=== PATIENT | female | born 1955 | race Caucasian/White ===

== ENCOUNTER 2025-01-01 15:34 | Inpatient (IN) | payer MEDICARE, MEDICAID ==
[~2025-01-01] VITALS: Ht 152.4 cm; Wt 74.4 kg
[~2025-01-01 15:34] MED LIST: IBUP-1454 PO; INSU1INJ19 SC; PANC1CAP PO; TRAZ-227 PO
--- NOTE | 2025-01-01 15:49 | ED.PDOC ---
History of Present Illness HPI Comments 69-year-old female with PMHx Pancreatic Cancer, DM brought in by EMS presents with a chief complaint of generalized weakness and ALOC x 1 day. Per EMS, family noticed that beginning yesterday patient was becoming more lethargic and weak. Today patients family mention that patient is now altered and not responsive to verbal stimuli. Patient was given 300mL of NS by EMS and is now more alert, but is slower to respond. Patient was hypotensive at 60 systolic per EMS which is why they initiated the fluids. Patient is seen and treated for her cancer at [facility]. Patients blood sugar was 152 per EMS. Chief Complaint: General Weakness Time Seen by MD: 15:40 Reviewed Notes: Medications, Allergies Allergies: Coded Allergies: NO KNOWN ALLERGIES (Unverified , 01/01/25) Information Source: Emergency Med Personnel Mode of Arrival: EMS Severity: Moderate Timing: Hours Duration: Since onset Prehospital treatment: Accucheck, IVF (300mL NS) Past Medical History PAST MEDICAL HISTORY: Cancer, DM Surgical History: Denies all surgeries BUILDING SERVICES TECHNICIAN History: Denies all BUILDING SERVICES TECHNICIAN Hx Family History Family History: Reviewed,noncontributory to illness Social History Smoker: Non-Smoker Alcohol: Denies ETOH Use Drugs: Denies Drug Use Lives In: Home Constitutional: reports: weakness; denies: chills, diaphoresis, fatigue, fever, malaise, sweats, others EENTM: denies: blurred vision, double vision, ear bleeding, ear discharge, ear drainage, ear pain, ear ringing, eye pain, eye redness, hearing loss, mouth pain, mouth swelling, nasal discharge, nose bleeding, nose congestion, nose pain, photophobia, tearing, throat pain, throat swelling, voice changes, others Respiratory: denies: cough, hemoptysis, orthopnea, SOB at rest, shortness of breath, SOB with excertion, stridor, wheezing, others Cardiovascular: denies: chest pain, dizzy spells, diaphoresis, Dyspnea on exertion, edema, irregular heart beat, left arm pain, lightheadedness, palpitations, PND, syncope, others Gastrointestinal: denies: abdomen distended, abdominal pain, blood streaked bowels, constipated, diarrhea, dysphagia, difficulty swallowing, hematemesis, melena, nausea, poor appetite, poor fluid intake, rectal bleeding, rectal pain, vomiting, others Genitourinary: denies: abnormal vagina bleeding, burning, dyspareunia, dysuria, flank pain, frequency, hematuria, incontinence, pain, , vagina discharge, urgency, others Neurological: denies: dizziness, fainting, headache, left sided numbness, left sided weakness, numbness, paresthesia, pre-existing deficit, right sided numbness, right sided weakness, seizure, speech problems, tingling, tremors, weakness, others Musculoskeletal: denies: back pain, gout, joint pain, joint swelling, muscle pain, muscle stiffness, neck pain, others Integumetry: denies: bruises, change in color, change in hair/nails, dryness, laceration, lesions, lumps, rash, wounds, others Allergic/Immunocompromised: denies: Difficulty Healing, Frequent Infections, Hives, Itching, others Hematologic/Lymphatic: denies: anemia, blood clots, easy bleeding, easy bruising, swollen glands, others Endocrine: denies: excessive hunger, excessive sweating, excessive thirst, excessive urination, flushing, intolerance to cold, intolerance to heat, unexplained weight gain, unexplained weight loss, others Psychiatric: denies: anxiety, bipolar disorder, depression, hopeless, panic disorder, schizophrenia, sleepless, suicidal, others All Other Systems: Reviewed and Negative Physical Exam General Appearance: No Apparent Distress, Normal, Other (PLESANTLY CONFUSED) HEENT: Normal ENT Inspection, Pharynx Normal, TMs Normal Neck: Full Range of Motion, Non-Tender, Normal, Normal Inspection Respiratory: Chest Non-Tender, Lungs Clear, No Accessory Muscle Use, No Respiratory Distress, Normal Breath Sounds Cardiovascular: No Edema, No JVD, No Murmur, No Gallop, Normal Peripheral Pulses, Regular Rate/Rhythm Breast Exam: Deferred Gastrointestinal: No Organomegaly, Non Tender, No Pulsatile Mass, Normal Bowel Sounds, Soft Genitalia: Deferred Pelvic: Deferred Rectal: Deferred Extremities: No calf tenderness, Normal capillary refill, Normal inspection, Normal range of motion, Non-tender, No pedal edema Neurologic: Alert, enamel cracker II-XII nml as Tested, No Motor Deficits, Normal Affect, Normal Mood, No Sensory Deficits Cerebellar Function: Normal Reflexes: Normal Skin: Dry, Normal Color, Warm Lymphatic: No Adenopathy Was a procedure done? Was a procedure done?: No Differential Dx Considerations may include: Electrolyte abnormality, infectious etiology, chemotherapy reaction, ACS, worsening malignancy X-Ray, Labs, Meds, VS Vital Signs Date Time Temp Pulse Resp B/P (MAP) Pulse Ox O2 Delivery O2 Flow Rate FiO2 01/01/25 16:15 90 18 99 Nasal Cannula* 2 28 01/01/25 15:57 97.9 90 18 81/56 (64) 98 97.9 Lab Test 01/01/25 16:51 01/01/25 16:23 Range/Units White Blood Count 5.2 4.4-10.8 10^3/uL Red Blood Count 2.25 L 4.0-5.20 10^6/uL Hemoglobin 7.3 L 12.2-16.2 g/dL Hematocrit 21.8 L 36.0-46.0 % Mean Corpuscular Volume 97.1 80.0-100.0 fL Mean Corpuscular Hemoglobin 32.7 H 28.0-32.0 pg Mean Corpuscular Hemoglobin Concent 33.6 32.0-36.0 g/dL Red Cell Distribution Width 16.9 H 11.8-14.3 % Platelet Count 62 L 140-450 10^3/uL Mean Platelet Volume 10.2 6.9-10.8 fL Neutrophils (%) (Auto) 37.0-80.0 % Lymphocytes (%) (Auto) 10.0-50.0 % Monocytes (%) (Auto) 0.0-12.0 % Basophils (%) (Auto) 0.0-2.0 % Neutrophils # (Auto) 1.6-8.6 10 ^3/uL Lymphocytes # (Auto) 0.4-5.4 10 ^3/uL Monocytes # (Auto) 0-1.3 10 ^3/uL Differential Total Cells Counted Pending Neutrophils % (Manual) Pending Band Neutrophils % (Manual) Pending Lymphocytes % (Manual) Pending Monocytes % (Manual) Pending Eosinophils % (Manual) Pending Basophils % (Manual) Pending Metamyelocytes % (manual) Pending Myelocytes % (Manual) Pending Promyelocytes % (Manual) Pending Blast Cells % (Manual) Pending Reactive Lymphocytes Pending Platelet Estimate Pending Sodium Level 142 136-145 mmol/L Potassium Level 3.0 L 3.5-5.1 mmol/L Chloride Level 109 H 98-107 mmol/L Carbon Dioxide Level 25 20-31 mmol/L Anion Gap 8 5-15 Blood Urea Nitrogen 24 H 9-23 mg/dL Creatinine 1.29 H 0.550-1.02 mg/dL Glomerular Filtration Rate Calc 45 >90 mL/min BUN/Creatinine Ratio 18.6 10.0-20.0 Serum Glucose 141 H 74-106 mg/dL Lactic Acid Level 2.3 *H 0.4-2.0 mmol/L Calcium Level 7.7 L 8.7-10.4 mg/dL Total Bilirubin 0.6 0.2-1.0 mg/dL Aspartate Amino Transferase (AST) 265 H 13-40 U/L Alanine Aminotransferase (ALT) 158 H 7-40 U/L Alkaline Phosphatase 248 H 46-116 U/L Ammonia < 10 L 11-32 umol/L Troponin I High Sensitivity 9201 *H </=34 ng/L B-Type Natriuretic Peptide 166.06 0-100 pg/mL Total Protein 3.7 L 5.7-8.2 g/dL Albumin 1.9 L 3.2-4.8 g/dL Lipase 12 12-53 U/L POC Glucose 139 H 70-106 mg/dl Time of 1ST Reevaluation: 16:10 Reevaluation 1ST: Unchanged Patient Education/Counseling: Diagnosis, Treatment, Prognosis Family Education/Counseling: Diagnosis, Treatment, Prognosis Departure 1 Departure Time of Disposition: 17:33 (Patient with hypotension refractory to IV fluid bolus. Started pressors. Reportedly the patient's electrolytes and we will admit to the ICU.) Impression: Primary Impression: Generalized weakness Additional Impressions: Metabolic encephalopathy Hypokalemia Hypocalcemia Hypotension Qualified Codes: I95.9 - Hypotension, unspecified Disposition: 09 ADMITTED INPATIENT Admit to: ICU Condition: Critical Critical Care Note Critical Care Time?: Yes Critical care comment: Acute hypotension Authorized and Performed by: Pam Garcia MD Total critical care time: Approximately 68 minutes Due to a high probability of clinically significant, life threatening deterioration, the patient required my highest level of preparedness to intervene emergently and I personally spent this critical care time directly and personally managing the patient. This critical care time included obtaining a history; examining the patient; pulse oximetry; ordering and review of studies; arranging urgent treatment with development of a management plan; evaluation of patient's response to treatment; frequent reassessment; and, discussions with other providers. This critical care time was performed to assess and manage the high probability of imminent, life-threatening deterioration that could result in multi-organ failure. It was exclusive of separately billable procedures and treating other patients and teaching time. Please see my other sections and the rest of the note for further information on patient assessment and treatment. I personally scribed for PAM GARCIA MD ([email or web address]) on 01/01/25 at 15:49. Electronically submitted by Kale Arzola ([email or web address]). PAM GARCIA MD Jan 01, 2025 15:49
[2025-01-01] MEDS: SODIUM CHLORIDE 0.9% 1,000 ML IV ONE (16:00)
[2025-01-01 16:15] VITALS: PULSE 90; RESP 18; O2SAT 99
[2025-01-01 17:04] LABS: Platelet Count (auto) 62 10^3/uL (140-450); White Blood Cell 5.2 10^3/uL (4.4-10.8)
[2025-01-01 17:06] LABS: Hematocrit 21.8 % (36.0-46.0); Hemoglobin 7.3 g/dL (12.2-16.2); Mean Corpuscular Hemoglobin 32.7 pg (28.0-32.0); Mean Corpuscular Hgb Conc. 33.6 g/dL (32.0-36.0); Mean Corpuscular Volume 97.1 fL (80.0-100.0); Red Blood Cells 2.25 10^6/uL (4.0-5.20); Red Cell Distribution Width 16.9 % (11.8-14.3)
[2025-01-01] MEDS: NOREPINEPHRINE 8 MG/250ML KIT 250 ML IV ONE (17:07)
[2025-01-01] MEDS: NOREPINEPHRINE 8 MG/250ML KIT 250 ML IV SCH (17:15)
[2025-01-01 17:18] LABS: Basophils % (manual) 0 (0.0-2.0); Blast Cells 0; Eosinophils % (manual) 0 (0-7); Metamyelocytes % 0; Myelocytes % 0; Promyelocytes % 0; Reactive Lymphocytes 0
[2025-01-01 17:21] LABS: Anion Gap 8 (5-15); BUN/Creatinine Ratio 18.6 (10.0-20.0); Carbon Dioxide 25 mmol/L (20-31); Lipase 12 U/L (12-53); Sodium 142 mmol/L (136-145)
[2025-01-01 17:22] LABS: Bilirubin, Total 0.6 mg/dL (0.2-1.0)
[2025-01-01 17:28] LABS: Alanine Aminotransferase 158 U/L (7-40); Albumin 1.9 g/dL (3.2-4.8); Alkaline Phosphatase 248 U/L (46-116); Aspartate Aminotransferase 265 U/L (13-40); Blood Urea Nitrogen 24 mg/dL (9-23); Calcium 7.7 mg/dL (8.7-10.4); Chloride 109 mmol/L (98-107); Glucose 141 mg/dL (74-106); Total Protein 3.7 g/dL (5.7-8.2)
[2025-01-01 17:30] LABS: Lactic Acid w/Reflex 2.3 mmol/L (0.4-2.0)
[2025-01-01 18:21] LABS: Band Neutrophils % (manual) 8; Lymphocytes % (manual) 1 (10.0-50.0); Monocytes % (manual) 3 (0-12)
[2025-01-01 18:22] LABS: Large Platelets FEW; Platelet Estimate Decrea
--- NOTE | 2025-01-01 18:43 | DVH ---
EXAM: CT HEAD WITHOUT CONTRAST INDICATION: ams TECHNIQUE: CT of the head without intravenous contrast. Radiation Dose Information: CT Dose: CTDI volume is 51.44 mGy. Dose-length product is 911.09 mGy*cm The dose indicators for CT are the volume Computed Tomography (CT) Dose Index (CTDIvol) and the Dose Length Product (DLP), and are measured in units of mGy and mGy-cm, respectively. These indicators are not patient dose, but values generated from the CT scanner acquisition factors. The report includes radiation exposure data for exposures received during this examination. COMPARISON: None FINDINGS: There is no evidence of acute intracranial hemorrhage, extra-axial collection, mass effect, midline s hift, herniation or hydrocephalus. The ventricles, sulci and cisterns are age appropriate. The morales-white differentiation is intact. Patchy periventricular and subcortical white matter hypoattenuation is nonspecific but may be related to small vessel ischemic disease. The visualized paranasal sinuses and mastoid air cells are clear. The surrounding soft tissues and osseous structures are unremarkable. IMPRESSION: 1. No acute intracranial hemorrhage 2. No CT findings displaced skull fracture 3. CT findings of territorial ischemia.
--- NOTE | 2025-01-01 18:45 | DVH ---
CHEST RADIOGRAPH Indication: ams Technique: Single frontal view of the chest was obtained Comparison: None FINDINGS: Lines and Tubes: Right IJ approach central venous catheter terminating over the superior cavoatrial j unction. Lungs: No focal consolidation. Diffuse interstitial prominence. Pleura: No effusion. No pneumothorax. Cardiomediastinal contours: Unremarkable Bones: No acute osseous abnormality. IMPRESSION: Diffuse interstitial prominence which may be from pulmonary edema /atypical pneumonia.
[2025-01-01] MEDS: AMIODARONE BOLUS KIT 100 ML IV ONE (19:02)
[2025-01-01] MEDS: CALCIUM GLUC 1,000mg/50ml-NS 50 ML IV SCH (19:31)
[2025-01-01 19:38] LABS: INR 1.49 (0.9-1.15); Partial Thromboplastin Time 46.1 SEC (24.5-34.5); Prothrombin Time 15.2 sec (9.3-11.8)
[2025-01-01] MEDS: LIDOCAINE 1% (LOCAL ANESTH.) PF 5ml SDV ID ONE (20:20)
[2025-01-01] MEDS: METOPROLOL TARTRATE 1MG/1ML-5ML VIAL IV ONE (20:55)
[2025-01-01 22:16] LABS: Urine Bacteria MANY /hpf (None Seen); Urine Blood Negative /uL (Negative); Urine Clarity Turbid (Clear); Urine Color Yellow (Yellow); Urine Mucus FEW (None Seen); Urine Protein, UAD 1+ (Negative); Urine Squamous Epithelial Cell FEW /hpf (<5); Urine Urobilinogen 2 mg/dL (Negative); Urine WBC 26 /HPF (0-5); Urine pH 5.5 (5.0-9.0)
[2025-01-01] MEDS: SODIUM CHLOR 0.9% PF (SALINE LOCK) 10ML VIAL/SYR IV SCH (22:24)
[2025-01-01] MEDS: POTASSIUM CHL 20MEQ/100ML 100 ML IV SCH ×2 (22:48→23:55)
[2025-01-02] VITALS (72 sets, daily range): BP systolic 76–110; BP diastolic 51–74; PULSE 71–137; RESP 13–25; TEMP 97.3–99.2; O2SAT 86–100
--- NOTE | 2025-01-02 00:30 | PRN ---
Misceleneous Note Note Note Patient initially treated by Dr. Lindsey. Pending hospitalist admission. Received a request from patient's nurse that patient and her daughter requesting to update advanced directives to do not resuscitate - (no compressions), do not intubate. Patient's troponins noted to be trending upwards. EKG showed SVT at a rate of 160s. Dose of 2.5 mg metoprolol was administered. Case discussed with Dr. Brown, cardiology. Given patient's hemoglobin of 7.2 platelets of 62, history of cancer and DNR DNI status. He recommends against heparin or cardiac catheterization at this time. He recommends aspirin, beta- hilario and statin. SHELLY ZAVALA MD Jan 02, 2025 00:30
[2025-01-02] MEDS ORDERED: ACETAMINOPHEN 325 MG TAB PO PRN (01:00)
[2025-01-02] MEDS ORDERED: MORPHINE SULFATE INJ 2 MG/ml SYRG IV PRN (01:00)
[2025-01-02] MEDS ORDERED: NITROGLYCERIN 0.4 MG SL TAB SL PRN (01:00)
[2025-01-02] MEDS ORDERED: ONDANSETRON HCL 4 MG/2 ML VIAL IV PRN (01:00)
--- NOTE | 2025-01-02 01:09 | DVHHP2 ---
History of Present Illness Reason for Visit: Generalized weakness History of Present Illness 69-year-old female presented for evaluation of generalized weakness. Patient with pancreatic cancer currently being treated at [facility] with chemotherapy every Thursday. Patient presents after being noted progressively weaker and lethargic by family. On route patient's blood pressure was in the 70s. Patient is currently alert and oriented x3. Denies headache or blurred vision. Reports mild dizziness. Denies chest pain or shortness for breath. No abdominal pain, nausea or vomiting. Denies fever or chills. No other acute complaints reported. Past Medical History Diabetes mellitus, cancer Past Surgical History None Family History Noncontributory Smoke: No ALCOHOL: none Drugs: None Review of Systems Review of Systems Review of systems are currently negative otherwise addressed in HPI. Allergies: Coded Allergies: NO KNOWN ALLERGIES (Unverified , 01/01/25) Medications Current Medications Medications Dose Ordered Sig/Maxi Route Start Time Stop Time Status Last Admin Dose Admin Norepinephrine Bitartrate 250 ml @ 3.75 mls/hr Q24H IV 01/01/25 17:15 01/01/25 23:35 37.5 MLS/HR Sodium Chloride 10 ml QSHIFT@10,22 IV 01/01/25 22:00 01/01/25 22:24 10 ML Potassium Chloride 100 ml @ 50 mls/hr Q2H IV 01/01/25 23:45 01/02/25 01:44 01/01/25 23:55 50 MLS/HR Aspirin 162 mg DAILY PO 01/02/25 10:00 UNV Atorvastatin Calcium 20 mg HS PO 01/02/25 22:00 UNV Ceftriaxone Sodium 50 ml @ 100 mls/hr DAILY@09 IV 01/02/25 09:00 UNV Azithromycin 250 ml @ 125 mls/hr DAILY IV 01/02/25 10:00 UNV Diagnostic Test (Pha) 1 strip Q6HR 01/02/25 06:00 UNV Insulin Human Regular Q6HR SC 01/02/25 06:00 UNV Dextrose 50 ml UD PRN IV 01/02/25 01:00 UNV Ondansetron HCl 4 mg Q4HP PRN IV 01/02/25 01:00 UNV Acetaminophen 650 mg Q6HP PRN PO 01/02/25 01:00 UNV Nitroglycerin 0.4 mg Q5MINP PRN SL 01/02/25 01:00 UNV Morphine Sulfate 2 mg Q30M PRN IV 01/02/25 01:00 UNV Exam Vital Signs Vital Signs Date Time Temp Pulse Resp B/P (MAP) Pulse Ox O2 Delivery O2 Flow Rate FiO2 01/02/25 00:45 58 19 96/62 (73) 98 01/01/25 19:30 99.2 99.2 01/01/25 19:22 Nasal Cannula* 2 28 Exam Gen: 69-year-old female in mild distress Skin: Warm, dry, normal color and texture, left forearm skin tear HEENT: Normocephalic atraumatic, mucous membranes moist and pink. Neck: Cervical and supraclavicular nodes normal without enlargement, trachea is midline, thyroid gland is normal without masses. Pulmonary: Clear to auscultation and percussion bilaterally. Cardiac: Irregular rhythm Abdomen: Soft, nontender, nondistended, bowel sounds present all 4 quadrants, no guarding, no rigidity, no organomegaly. Extremities: No cyanosis, clubbing, no edema Neuro: Cranial nerves II through XII grossly intact, normal affect and speech, no focal motor deficits. Labs/Xrays ORDERING PHYSICIAN: PAM HOANG MD PROCEDURE(s): CXRP - CHEST PORTABLE REASON: [facility] ORDER NUMBER(s): [id number], ACCESSION NUMBER(s): [id number] CHEST RADIOGRAPH Indication: ams Technique: Single frontal view of the chest was obtained Comparison: None FINDINGS: Lines and Tubes: Right IJ approach central venous catheter terminating over the superior cavoatrial junction. Lungs: No focal consolidation. Diffuse interstitial prominence. Pleura: No effusion. No pneumothorax. Cardiomediastinal contours: Unremarkable Bones: No acute osseous abnormality. IMPRESSION: Diffuse interstitial prominence which may be from pulmonary edema /atypical pneumonia. RING PHYSICIAN: PAM HOANG MD PROCEDURE(s): HWOCT - HEAD WITHOUT CONTRAST REASON: [facility] ORDER NUMBER(s): [id number], ACCESSION NUMBER(s): [id number] EXAM: CT HEAD WITHOUT CONTRAST INDICATION: ams TECHNIQUE: CT of the head without intravenous contrast. Radiation Dose Information: CT Dose: CTDI volume is 51.44 mGy. Dose-length product is 911.09 mGy*cm The dose indicators for CT are the volume Computed Tomography (CT) Dose Index (CTDIvol) and the Dose Length Product (DLP), and are measured in units of mGy and mGy-cm, respectively. These indicators are not patient dose, but values generated from the CT scanner acquisition factors. The report includes radiation exposure data for exposures received during this examination. COMPARISON: None FINDINGS: There is no evidence of acute intracranial hemorrhage, extra-axial collection, mass effect, midline shift, herniation or hydrocephalus. The ventricles, sulci and cisterns are age appropriate. The morales-white differentiation is intact. Patchy periventricular and subcortical white matter hypoattenuation is nonspecific but may be related to small vessel ischemic disease. The visualized paranasal sinuses and mastoid air cells are clear. The surrounding soft tissues and osseous structures are unremarkable. IMPRESSION: 1. No acute intracranial hemorrhage 2. No CT findings displaced skull fracture 3. CT findings of territorial ischemia. ATED BY: NYLA HOWARD Jr. DO Labs Test 01/01/25 22:04 01/01/25 19:25 01/01/25 16:51 01/01/25 16:23 Range/Units Urine Color Yellow Yellow Urine Clarity Turbid H Clear Urine pH 5.5 5.0-9.0 Urine Specific [place] 1.020 1.001-1.035 Urine Protein 1+ H Negative Urine Ketones Trace Negative Urine Blood Negative Negative /uL Urine Nitrite Negative Negative Urine Bilirubin Negative Negative Urine Urobilinogen 2 H Negative mg/dL Urine Leukocyte Esterase 1+ Negative /uL Urine RBC 10 0 - 4 /hpf Urine Microscopic WBC 26 H 0-5 /HPF Urine Squamous Epithelial Cells Few <5 /hpf Urine Bacteria Many H None Seen /hpf Urine Mucus Few None Seen Urine Glucose Normal Normal mg/dL Lactic Acid Level 3.2 *H 0.4-2.0 mmol/L Troponin I High Sensitivity 51857 *H </=34 ng/L White Blood Count 5.2 4.4-10.8 10^3/uL Red Blood Count 2.25 L 4.0-5.20 10^6/uL Hemoglobin 7.3 L 12.2-16.2 g/dL Hematocrit 21.8 L 36.0-46.0 % Mean Corpuscular Volume 97.1 80.0-100.0 fL Mean Corpuscular Hemoglobin 32.7 H 28.0-32.0 pg Mean Corpuscular Hemoglobin Concent 33.6 32.0-36.0 g/dL Red Cell Distribution Width 16.9 H 11.8-14.3 % Platelet Count 62 L 140-450 10^3/uL Mean Platelet Volume 10.2 6.9-10.8 fL Neutrophils (%) (Auto) 37.0-80.0 % Lymphocytes (%) (Auto) 10.0-50.0 % Monocytes (%) (Auto) 0.0-12.0 % Basophils (%) (Auto) 0.0-2.0 % Neutrophils # (Auto) 1.6-8.6 10 ^3/uL Lymphocytes # (Auto) 0.4-5.4 10 ^3/uL Monocytes # (Auto) 0-1.3 10 ^3/uL Differential Total Cells Counted 100.0 100 Neutrophils % (Manual) 88 H 37.0-80.0 Band Neutrophils % (Manual) 8 Lymphocytes % (Manual) 1 L 10.0-50.0 Monocytes % (Manual) 3 0-12 Eosinophils % (Manual) 0 0-7 Basophils % (Manual) 0 0.0-2.0 Metamyelocytes % (manual) 0 Myelocytes % (Manual) 0 Promyelocytes % (Manual) 0 Blast Cells % (Manual) 0 Reactive Lymphocytes 0 Platelet Estimate Decrea Large Platelets Few Prothrombin Time 15.2 H 9.3-11.8 sec Prothrombin Time INR 1.49 H 0.9-1.15 Activated Partial Thromboplast Time 46.1 H 24.5-34.5 SEC Sodium Level 142 136-145 mmol/L Potassium Level 3.0 L 3.5-5.1 mmol/L Chloride Level 109 H 98-107 mmol/L Carbon Dioxide Level 25 20-31 mmol/L Anion Gap 8 5-15 Blood Urea Nitrogen 24 H 9-23 mg/dL Creatinine 1.29 H 0.550-1.02 mg/dL Glomerular Filtration Rate Calc 45 >90 mL/min BUN/Creatinine Ratio 18.6 10.0-20.0 Serum Glucose 141 H 74-106 mg/dL Calcium Level 7.7 L 8.7-10.4 mg/dL Total Bilirubin 0.6 0.2-1.0 mg/dL Aspartate Amino Transferase (AST) 265 H 13-40 U/L Alanine Aminotransferase (ALT) 158 H 7-40 U/L Alkaline Phosphatase 248 H 46-116 U/L Ammonia < 10 L 11-32 umol/L B-Type Natriuretic Peptide 166.06 0-100 pg/mL Total Protein 3.7 L 5.7-8.2 g/dL Albumin 1.9 L 3.2-4.8 g/dL Lipase 12 12-53 U/L POC Glucose 139 H 70-106 mg/dl Assessment/Plan Assessment/Plan Assessment NSTEMI Possible early sepsis Possible community-acquired pneumonia Hypokalemia Acute kidney injury Transaminitis Severe protein malnutrition Diabetes mellitus Pancreatic cancer status post chemotherapy Urinary tract infection Thrombocytopenia Plan Admit the patient to ICU to the hospitalist Continue vasoactive support for blood pressure Follow cardiology recommendations by Dr. Brown Continue treatment per orders Total critical care time excluding procedures performed is 50 minutes. Plan discussed with: Patient My Orders Orders - JAZLYN DE LA O AGACNP Procedure Category Date Status Time Blood Culture [id number] 01/02/25 Logged 00:50 Aspirin Tablet PHA 01/02/25 Logged 10:00 Atorvastatin (Lipitor) PHA 01/02/25 Logged 01:00 Atorvastatin (Lipitor) PHA 01/02/25 Logged 22:00 Ceftriaxone 1gm/50ml PHA 01/02/25 Logged D5w (Rocephin) 09:00 Ceftriaxone 1gm/50ml PHA 01/02/25 Logged D5w (Rocephin) 01:00 Azithromycin 500mg/ PHA 01/02/25 Logged 250ml (Zithromax 50 10:00 Azithromycin 500mg/ PHA 01/02/25 Transmitted 250ml (Zithromax 50 01:00 Stool Occult Blood LAB 01/02/25 Logged 00:50 * Cardiology Consult CONS 01/02/25 Transmitted 00:50 Echo 2d Mode Cardiac US 01/02/25 Transmitted DOP 00:50 Complete Blood Count LAB 01/02/25 Logged 00:50 Comprehensive LAB 01/02/25 Logged Metabolic Panel 00:50 Albuterol Medneb PHA 01/02/25 Transmitted (Ventolin Medneb) 01:00 Glucose Blood PHA 01/02/25 Logged (Accu-Chek Comfort 06:00 Insulin R (Human) PHA 01/02/25 Logged (Insulin R) 06:00 Dextrose 50% Syringe PHA 01/02/25 Logged 01:00 Admit ADMIT 01/02/25 Transmitted 00:50 Ondansetron Hcl PHA 01/02/25 Logged (Zofran) 01:00 Cardiac DIET 01/02/25 Transmitted Diet-2gna,Lofat,Lochol Breakfast Condition: Critical THAO 01/02/25 In Process 00:50 Acetaminophen Tablet PHA 01/02/25 Logged (Tylenol Tablet) 01:00 Bedrest With Bathroom THAO 01/02/25 In Process Privileg 00:50 Nitroglycerin PHA 01/02/25 Logged Sublingual (Ntrostat 01:00 Morphine Sulfate PHA 01/02/25 Logged Injection 01:00 Stat Ekg For Chest [facility] 01/02/25 In Process Pain 00:50 Notify Md Of Changes [facility] 01/02/25 In Process From Base 00:50 Inbound Sales Manager For [facility] 01/02/25 In Process 24 Hours 00:50 Emergency Dysrhythmia [facility] 01/02/25 In Process Protocol 00:50 Rhythm Strips Once [facility] 01/02/25 In Process Every Shift 00:50 Oxygen By Nasal RT 01/02/25 Transmitted Cannula 00:50 Date of Service: Jan 02, 2025 Billing Provider: JAZLYN DE LA O Common Visit Codes: 45556-[id number] CARE 30-74 MIN JAZLYN DE LA O Jan 02, 2025 01:09
[2025-01-02] MEDS: ATORVASTATIN 20 MG TAB PO ONE (01:13)
[2025-01-02] MEDS: cefTRIAXone 1GM/50ML D5W 50 ML IV ONE (01:19)
[2025-01-02] MEDS: AZITHROMYCIN 500MG/ 250ML 250 ML IV ONE (01:20)
[2025-01-02 01:28] LABS: Basophils # (auto) 0 10 ^3/uL (0-0.2); Basophils % (auto) 0.1 % (0.0-2.0); Eosinophils # (auto) 0 10 ^3/uL (0-0.8); Hematocrit 29.5 % (36.0-46.0); Hemoglobin 9.9 g/dL (12.2-16.2); Lymphocytes # (auto) 0.3 10 ^3/uL (0.4-5.4); Lymphocytes % (auto) 1.9 % (10.0-50.0); Mean Corpuscular Hemoglobin 32.4 pg (28.0-32.0); Mean Corpuscular Hgb Conc. 33.4 g/dL (32.0-36.0); Monocytes # (auto) 0.7 10 ^3/uL (0-1.3); Monocytes % (auto) 4.5 % (0.0-12.0); Neutrophils # (auto) 14.7 10 ^3/uL (1.6-8.6); Neutrophils % (auto) 93.5 % (37.0-80.0); Nucleated Red Blood Cells % 0.1 %; Platelet Count (auto) 103 10^3/uL (140-450); Red Blood Cells 3.04 10^6/uL (4.0-5.20); Red Cell Distribution Width 17.4 % (11.8-14.3); White Blood Cell 15.7 10^3/uL (4.4-10.8)
[2025-01-02 01:47] LABS: Anion Gap 9 (5-15); BUN/Creatinine Ratio 18.1 (10.0-20.0); Bilirubin, Total 1.1 mg/dL (0.2-1.0); Calcium 8.9 mg/dL (8.7-10.4); Carbon Dioxide 24 mmol/L (20-31); Potassium 4.2 mmol/L (3.5-5.1); Sodium 141 mmol/L (136-145)
[2025-01-02 02:07] LABS: Alanine Aminotransferase 193 U/L (7-40); Albumin 2.4 g/dL (3.2-4.8); Alkaline Phosphatase 345 U/L (46-116); Aspartate Aminotransferase 250 U/L (13-40); Blood Urea Nitrogen 25 mg/dL (9-23); Chloride 108 mmol/L (98-107); Glucose 131 mg/dL (74-106); Total Protein 4.9 g/dL (5.7-8.2)
[2025-01-02] MEDS: ACCU-CHEK COMFORT CURVE STRIP VI SCH (05:59)
[2025-01-02] MEDS: InsuLIN REG 1unit/0.01ml Soln (100units/ml) SC SCH (06:11)
--- NOTE | 2025-01-02 07:10 | ECG ---
[facility] Test Date: 2025-01-01 Test Time: 21:31:23 Pat Name: ACACIA SMILEY Department: ER Room: [address] [place] [address] Gender: F English And Reading Instructor: : 1955 Requested By: PAM HOANG Order Number: [id number] Reading MD: Tarik Warren Measurements Intervals [place] Rate: 64 P: 46 AK: 144 QRS: -20 QRSD: 105 T: 49 QT: 539 QTc: 557 Interpretive Statements Uncertain rhythm: review Low voltage, extremity and precordial leads Prolonged QT interval Electronically Signed On 01-05-2025 10:36:16 PST by Tarik Warren Please click the below link to view image of tracing.
[2025-01-02] MEDS: LACTATED RINGER'S 1,000 ML IV ONE (09:48)
[2025-01-02] MEDS: ASPirin 81 mg TAB PO SCH (09:51)
[2025-01-02] MEDS: PHENYLEPHRINE IV 250 ML IV SCH (09:53)
--- NOTE | 2025-01-02 11:13 | DVHINCON2 ---
Date of service: Jan 01, 2025 Referring Physician Manan Reason for Consultation NSTEMI History of Present Illness This is a 69 year old female with a PMH of Pancreatic Cancer and DM who was brought in by EMS with complaint of generalized weakness and ALOC x 1 day. Per EMS, family noticed that beginning yesterday patient was becoming more lethargic and weak. Today patients family mention that patient is now altered and not responsive to verbal stimuli. Patient was given 300mL of NS by EMS and is now more alert, but is slow to respond. Patient was hypotensive at 60 systolic per EMS which is why they initiated the fluids. Patient is being treated for her cancer at [facility] with chemotherapy every Thursday. Chest x-ray shows diffuse interstitial prominence which may be from pulmonary edema /atypical pneumonia. CT head shows no acute intracranial hemorrhage. No CT findings displaced skull fracture. CT findings of territorial ischemia. HGB 7.3, HCT 21.8, PT 15.2, INR 1.49, APTT 46.1, K 3.0, BUN 24, Lead Java Programmer 1.29, LA 2.3, AST 265, ALT 158, Alk phos 248, BNP 166. Troponin 9201 > 06715 > 68505. Patient was admitted to the hospital. I am asked to consult on this patient. Past Medical History DM, cancer Past Surgical History Denies all surgeries Allergies: Coded Allergies: NO KNOWN ALLERGIES (Unverified , 01/01/25) Current Medications Current Medications Medications (Trade) Dose Ordered Sig/Maxi Route PRN Reason Start Time Stop Time Status Last Admin Norepinephrine Bitartrate 250 ml @ 3.75 mls/hr Q24H IV 01/01/25 17:15 01/02/25 09:50 Potassium Chloride 100 ml @ 50 mls/hr Q2H IV 01/01/25 17:30 01/01/25 23:42 DC 01/01/25 22:48 Calcium Gluconate/ Sodium Chloride 50 ml @ 100 mls/hr Q30M IV 01/01/25 17:45 01/01/25 18:44 DC 01/01/25 20:08 Sodium Chloride (Saline Lock Ns) 10 ml QSHIFT@10,22 IV 01/01/25 22:00 01/01/25 22:24 Potassium Chloride 100 ml @ 50 mls/hr Q2H IV 01/01/25 23:45 01/02/25 01:44 DC 01/01/25 23:55 Aspirin 162 mg DAILY PO 01/02/25 10:00 01/02/25 09:51 Atorvastatin Calcium (Lipitor) 20 mg HS PO 01/02/25 22:00 Future Hold Ceftriaxone Sodium 50 ml @ 100 mls/hr Q24H IV 01/03/25 02:00 Azithromycin 250 ml @ 125 mls/hr Q24H IV 01/03/25 01:00 Albuterol (Ventolin Medneb) 2.5 mg Q6HPRN PRN NEB SHORTNESS OF BREATH 01/02/25 01:00 Diagnostic Test (Pha) (Accu-Chek Comfort Curve T) 1 strip Q6HR 01/02/25 06:00 01/02/25 05:59 Insulin Human Regular (InsuLIN R) Q6HR SC 01/02/25 06:00 01/02/25 06:11 Dextrose 50 ml UD PRN IV Blood Sugar LESS THAN 60 01/02/25 01:00 Ondansetron HCl (Zofran) 4 mg Q4HP PRN IV NAUSEA / VOMITING 01/02/25 01:00 Hold Acetaminophen (Tylenol Tablet) 650 mg Q6HP PRN PO PAIN SCALE 1-3 OR TEMP>100.4 01/02/25 01:00 Nitroglycerin (Ntrostat Sublingual) 0.4 mg Q5MINP PRN SL FOR CHEST PAIN 01/02/25 01:00 Morphine Sulfate 2 mg Q30M PRN IV FOR CHEST PAIN 01/02/25 01:00 Phenylephrine HCl 250 ml @ 30 mls/hr Q8H20M IV 01/02/25 09:15 01/02/25 09:53 Review of Systems Constitutional: reports: weakness; denies: chills, diaphoresis, fatigue, fever, malaise, sweats, others EENTM: denies: blurred vision, double vision, ear bleeding, ear discharge, ear drainage, ear pain, ear ringing, eye pain, eye redness, hearing loss, mouth pain, mouth swelling, nasal discharge, nose bleeding, nose congestion, nose pain, photophobia, tearing, throat pain, throat swelling, voice changes, others Respiratory: denies: cough, hemoptysis, orthopnea, SOB at rest, shortness of breath, SOB with excertion, stridor, wheezing, others Cardiovascular: denies: chest pain, dizzy spells, diaphoresis, Dyspnea on exertion, edema, irregular heart beat, left arm pain, lightheadedness, palpitations, PND, syncope, others Gastrointestinal: denies: abdomen distended, abdominal pain, blood streaked bowels, constipated, diarrhea, dysphagia, difficulty swallowing, hematemesis, melena, nausea, poor appetite, poor fluid intake, rectal bleeding, rectal pain, vomiting, others Genitourinary: denies: abnormal vagina bleeding, burning, dyspareunia, dysuria, flank pain, frequency, hematuria, incontinence, pain, , vagina discharge, urgency, others Neurological: denies: dizziness, fainting, headache, left sided numbness, left sided weakness, numbness, paresthesia, pre-existing deficit, right sided numbness, right sided weakness, seizure, speech problems, tingling, tremors, weakness, others Musculoskeletal: denies: back pain, gout, joint pain, joint swelling, muscle pain, muscle stiffness, neck pain, others Integumetry: denies: bruises, change in color, change in hair/nails, dryness, laceration, lesions, lumps, rash, wounds, others Allergic/Immunocompromised: denies: Difficulty Healing, Frequent Infections, Hives, Itching, others Hematologic/Lymphatic: denies: anemia, blood clots, easy bleeding, easy bruising, swollen glands, others Endocrine: denies: excessive hunger, excessive sweating, excessive thirst, excessive urination, flushing, intolerance to cold, intolerance to heat, unexplained weight gain, unexplained weight loss, others Psychiatric: denies: anxiety, bipolar disorder, depression, hopeless, panic disorder, schizophrenia, sleepless, suicidal, others All Other Systems: Reviewed and Negative Vital Signs Vital Signs Date Time Temp Pulse Resp B/P (MAP) Pulse Ox O2 Delivery O2 Flow Rate FiO2 01/02/25 10:15 99 15 96/62 (73) 97 01/02/25 10:00 Nasal Cannula* 2 28 01/02/25 08:00 97.3 97.3 Physical Exam GENERAL: Awake, alert, oriented. LUNGS: Clear. CARDIOVASCULAR: Heart sounds are good. ABDOMEN: Soft. SKIN: Left forearm skin tear. Labs/Diagnostic Data Labs Test 01/02/25 05:53 01/02/25 01:17 01/01/25 22:04 01/01/25 19:25 Range/Units POC Glucose 141 H 70-106 mg/dl White Blood Count 15.7 #H 4.4-10.8 10^3/uL Red Blood Count 3.04 L 4.0-5.20 10^6/uL Hemoglobin 9.9 #L 12.2-16.2 g/dL Hematocrit 29.5 #L 36.0-46.0 % Mean Corpuscular Volume 97.0 80.0-100.0 fL Mean Corpuscular Hemoglobin 32.4 H 28.0-32.0 pg Mean Corpuscular Hemoglobin Concent 33.4 32.0-36.0 g/dL Red Cell Distribution Width 17.4 H 11.8-14.3 % Platelet Count 103 L 140-450 10^3/uL Mean Platelet Volume 9.8 6.9-10.8 fL Neutrophils (%) (Auto) 93.5 H 37.0-80.0 % Lymphocytes (%) (Auto) 1.9 L 10.0-50.0 % Monocytes (%) (Auto) 4.5 0.0-12.0 % Eosinophils (%) (Auto) 0.0 0.0-7.0 % Basophils (%) (Auto) 0.1 0.0-2.0 % Neutrophils # (Auto) 14.7 H 1.6-8.6 10 ^3/uL Lymphocytes # (Auto) 0.3 L 0.4-5.4 10 ^3/uL Monocytes # (Auto) 0.7 0-1.3 10 ^3/uL Eosinophils # (Auto) 0 0-0.8 10 ^3/uL Basophils # (Auto) 0 0-0.2 10 ^3/uL Nucleated Red Blood Cells 0.1 % Sodium Level 141 136-145 mmol/L Potassium Level 4.2 3.5-5.1 mmol/L Chloride Level 108 H 98-107 mmol/L Carbon Dioxide Level 24 20-31 mmol/L Anion Gap 9 5-15 Blood Urea Nitrogen 25 H 9-23 mg/dL Creatinine 1.38 H 0.550-1.02 mg/dL Glomerular Filtration Rate Calc 41 >90 mL/min BUN/Creatinine Ratio 18.1 10.0-20.0 Serum Glucose 131 H 74-106 mg/dL Calcium Level 8.9 8.7-10.4 mg/dL Total Bilirubin 1.1 H 0.2-1.0 mg/dL Aspartate Amino Transferase (AST) 250 H 13-40 U/L Alanine Aminotransferase (ALT) 193 H 7-40 U/L Alkaline Phosphatase 345 H 46-116 U/L Total Protein 4.9 L 5.7-8.2 g/dL Albumin 2.4 L 3.2-4.8 g/dL Urine Color Yellow Yellow Urine Clarity Turbid H Clear Urine pH 5.5 5.0-9.0 Urine Specific May 1.020 1.001-1.035 Urine Protein 1+ H Negative Urine Ketones Trace Negative Urine Blood Negative Negative /uL Urine Nitrite Negative Negative Urine Bilirubin Negative Negative Urine Urobilinogen 2 H Negative mg/dL Urine Leukocyte Esterase 1+ Negative /uL Urine RBC 10 0 - 4 /hpf Urine Microscopic WBC 26 H 0-5 /HPF Urine Squamous Epithelial Cells Few <5 /hpf Urine Bacteria Many H None Seen /hpf Urine Mucus Few None Seen Urine Glucose Normal Normal mg/dL Lactic Acid Level 3.2 *H 0.4-2.0 mmol/L Troponin I High Sensitivity 47790 *H </=34 ng/L Test 01/01/25 16:51 Range/Units Differential Total Cells Counted 100.0 100 Neutrophils % (Manual) 88 H 37.0-80.0 Band Neutrophils % (Manual) 8 Lymphocytes % (Manual) 1 L 10.0-50.0 Monocytes % (Manual) 3 0-12 Eosinophils % (Manual) 0 0-7 Basophils % (Manual) 0 0.0-2.0 Metamyelocytes % (manual) 0 Myelocytes % (Manual) 0 Promyelocytes % (Manual) 0 Blast Cells % (Manual) 0 Reactive Lymphocytes 0 Platelet Estimate Decrea Large Platelets Few Prothrombin Time 15.2 H 9.3-11.8 sec Prothrombin Time INR 1.49 H 0.9-1.15 Activated Partial Thromboplast Time 46.1 H 24.5-34.5 SEC Ammonia < 10 L 11-32 umol/L B-Type Natriuretic Peptide 166.06 0-100 pg/mL Lipase 12 12-53 U/L Assessment NSTEMI. Hypokalemia. Acute kidney injury. Transaminitis. Severe protein malnutrition. Diabetes mellitus. Pancreatic cancer status post chemotherapy. Urinary tract infection. Thrombocytopenia. Plan/Recommendation I agree with your ongoing assessment and care of plan. Trend troponin. Echocardiogram. Aspirin, Lipitor. IV antibiotics as ordered. Morphine for pain management. Vasopressors for hemodynamic support. Nitro SL. Additional plan as per the hospital course. Critical care time of 90 minutes provided to include time spent evaluation of patient at bedside, when appropriate patient/family education for diagnosis, treatment plan, review of pertinent medical information and discussion of care with specialty providers and PCP. Plan discussed with: Patient MARY ALICE NAVARRO MD Jan 02, 2025 11:13
--- NOTE | 2025-01-02 12:30 | DVHSR ---
APPROVED REPORT EXAM: Two-dimensional and M-mode echocardiogram with Doppler and color Doppler. Blood Pressure: 103/74 mmHg INDICATION EF RISK FACTORS Height: 60, Weight: 99 DIMENSIONS LVDd5.2 (3.8-5.7cm)LA (2D)3.3 (1.9-4.0cm)Aortic Root3.4 (2.0-3.7cm) LVDs4.8 (2.5-4.0cm)LA (MM) (1.9-4.0cm)Aortic Cusp Exc1.6 (1.5-2.0cm) EF (%) 20.0 (55-70%)Rt. Atrium3.3 (1.9-4.0cm)Asc. Aorta3.3 cm IVSd1.2 (0.7-1.1cm)RV (D) (1.8-2.4cm) PWd1.2 (0.7-1.1cm) Mitral Valve MitralMitral Stenosis E wave0.81m/sMV Mean GR.mmHg A wavem/sMV Peak GR.20mmHg E/A ratio0.02D MVAcm2 Aortic Valve Aortic ValveAortic Stenosis V10.66m/Rahat Mean GR.2mmHg V20.97m/Rahat Peak GR.4mmHg LVOT Diameter2.0 (1.8-2.4cm)Doppler AVA2.14cm2 AI P 1/2 Agye367.04ms Pulmonic Valve V20.67m/s Other Information Technically limited study due to patient laying flat on her back. Conclusion lvef 10% by visual estimate marked LV enlargement end stage systolic HF RV dysfunction mild mild mitral regurg ( could be underestimated) trace to mild aortic regurg significant L sided pleural effusion appears large correlate with additional dedicated imaging small R sided pericardial effusion, no HD compromsie
[2025-01-02] MEDS ORDERED: VANCOMYCIN PER PHARMACY 0 MG IV SCH (14:00)
[2025-01-02] MEDS ORDERED: cefTRIAXone 2GM/50ML D5W 50 ML IV SCH (14:00)
[2025-01-02] MEDS ORDERED: cefTRIAXone 1GM/50ML D5W 50 ML IV SCH (14:00)
--- NOTE | 2025-01-02 14:05 | DVHPNRES ---
Progress Note Date Seen: Jan 02, 2025 Resident Creating Document: MANOJ HERNANDEZ RESIDENT Has the PT tested + for MRSA If YES, has PT been informed?: No Medical Necessity Reason Pt with a Central, PICC or Fol: Yes The following are medically ne: PICC Line, Cuellar Catheter Reason for cuellar catheter: Strict I&O Subjective Review of Systems Saw the patient at bedside, daughter at bedside, reviewed the medical history and history of present illness. Patient reports: No new complaints Objective vital signs Vital Sign Date Time Temp Pulse Resp B/P (MAP) Pulse Ox O2 Delivery O2 Flow Rate FiO2 01/02/25 12:45 107 17 89/63 (72) 95 01/02/25 12:00 98.5 98.5 01/02/25 12:00 Nasal Cannula* 2 28 Total Intake and Output 01/01/25 01/01/25 01/02/25 15:00 23:00 07:00 Intake Total 1346.25 ml 690.0000 ml Balance 1346.25 ml 690.0000 ml medications Current Medications Medications Dose Ordered Sig/Maxi Route Start Time Stop Time Status Last Admin Dose Admin Norepinephrine Bitartrate 250 ml @ 3.75 mls/hr Q24H IV 01/01/25 17:15 01/02/25 09:50 56.25 MLS/HR Sodium Chloride 10 ml QSHIFT@10,22 IV 01/01/25 22:00 01/02/25 11:53 10 ML Aspirin 162 mg DAILY PO 01/02/25 10:00 01/02/25 09:51 162 MG Atorvastatin Calcium 20 mg HS PO 01/02/25 22:00 Future Hold Albuterol 2.5 mg Q6HPRN PRN NEB 01/02/25 01:00 Diagnostic Test (Pha) 1 strip Q6HR 01/02/25 06:00 01/02/25 11:59 1 STRIP Insulin Human Regular Q6HR SC 01/02/25 06:00 01/02/25 06:11 2 UNITS Dextrose 50 ml UD PRN IV 01/02/25 01:00 Ondansetron HCl 4 mg Q4HP PRN IV 01/02/25 01:00 Hold Acetaminophen 650 mg Q6HP PRN PO 01/02/25 01:00 Nitroglycerin 0.4 mg Q5MINP PRN SL 01/02/25 01:00 Morphine Sulfate 2 mg Q30M PRN IV 01/02/25 01:00 Phenylephrine HCl 250 ml @ 30 mls/hr Q8H20M IV 01/02/25 09:15 01/02/25 09:53 30 MLS/HR Ceftriaxone Sodium/Dextrose 50 ml @ 50 mls/hr DAILY IV 01/02/25 14:00 UNV Cefepime HCl 50 ml @ 12.5 mls/hr Q12HR IV 01/02/25 22:00 UNV Vancomycin HCl 0 ml @ 0 mls/hr UD IV 01/02/25 14:00 UNV Examination: GENERAL:Normal (Mild distress), HEENT:Normal, NECK:Normal, LUNGS:Abnormal (Bilateral crackles, productive cough, on 2 L of nasal cannula oxygen), CVS:Normal (Elevated JVP), ABDOMEN:Normal (Nontender), MSK:Abnormal (Bilateral pedal edema, pitting), SKIN:Normal, NEURO:Normal, :Normal (On Cuellar's catheter) laboratory and microbiology Laboratory Tests 01/02/25 01:17 Test 01/02/25 01:17 Range/Units Serum Glucose 131 H 74-106 mg/dL Microbiology Date/Time Source Procedure Growth Status 01/02/25 01:17 Blood Blood Culture - Preliminary Resulted Labs and/or images reviewed: Labs reviewed by me, Image(s) reviewed by me Problem List/Assessment/Plan Problem List/Assessment/Plan ICU Course: A 69-year-old female with a history of pancreatic cancer and diabetes mellitus presented with generalized weakness. She is undergoing weekly chemotherapy at [facility]. Her family noted she has become progressively weaker and more lethargic. During transport, her blood pressure was in the 70s. Currently, she is alert and oriented, experiencing mild dizziness but no headache, blurred vision, chest pain, shortness of breath, abdominal pain, nausea, vomiting, fever, or chills. No other acute complaints were reported. Patient was found to have heart failure with reduced ejection fraction around 10% EF, volume overloaded state, bilateral pneumonia, UTI and acute hypoxic respiratory failure. Hospitalization day: 3 A. Neurology: the patient is alert, oriented but poor historian, as per family baseline ADLs intact. # insomnia: patient is on trazodone 50 mg at night, we will hold since patient is somnolent. Avoid medications with beers criteria. # mild territorial ischemia likely age-related: Noted in CT head noncontrast B. Cardiology: # hypotension secondary to Septic shock: although there could be a component of HF low ejection fraction, patient on 2 pressors keep the map over 65. # HFrEF: TTE/echo 10% ejection fraction, dilated cardiomyopathy. Likely due to cardiotoxic chemotherapy, IV Lasix diuresis as needed. Irinotecan and oxaliplatin are generally less associated with cardiotoxicity, where Fluorouracil (5-FU), Gemcitabine, Paclitaxel are highly cardio toxic. Further discussion needed with the primary oncologist. # acute on chronic heart failure: Moderate fluid overloaded state, bilateral pedal edema 3+, congestion as well as hypervolemic state/ Bilateral pedal edema: Patient was started on furosemide 20 mg tab recently but no further workup was done for heart failure. Trial of Lasix IV 40 mg, consider starting the patient on Lasix drip. C. Respiratory: # Acute hypoxic respiratory failure: Likely due to CHF exacerbation, Questionable pneumonia. check CXR tomorrow, unchanged pulmonary edema, sputum culture sent follow results, check for influenza, COVID negative. Worsening hypoxia with 11 L of high-flow nasal cannula. # bilateral pleural effusion: Likely due to fluid overload state/CHF exacerbation # possible atypical pneumonia: Workup in pending sputum culture. D. Gastrointestinal: # Known pancreatic cancer : since 1999, status post Whipple's surgery 2022, patient was on remission but had 2023 patient was found to have resurfacing of pancreatic cancer since then patient is every Thursday going to [facility] for chemotherapy. # History of Whipple's surgery in 2022 # Nausea secondary to chemotherapy: As needed ondansetron, Compazine # Transaminitis: Mild elevation of the bilirubin 1.1, AST ALT and alkaline phosphatase elevated: Likely due to conditions/septic shock/ atorvastatin, hold atorvastatin CMP follow up trending. # trace abdominal ascites: Likely due to fluid overload state E. Genitourinary: # incontinence: on Cuellar's catheter # UTI: urinalysis positive no previous culture available, on broad-spectrum antibiotics meropenem should cover possible gram negatives, urine culture pending. F. Infectious Disease: # severe sepsis secondary due to UTI : On broad antibiotic coverage of meropenem and vancomycin day 2. # lactic acidosis 3.2> 3.9: 250 cc of Ringer lactate given, limited scope of fluid resuscitation due to heart failure, repeat lactate today. # possible sepsis secondary due to community-acquired pneumonia Gram-positive Gram-negative: sputum culture pending , continue vancomycin till then Along with Gram-negative coverage, check for # UTI: Could be Gram-negative , no previous urinalysis found, urine culture and blood culture sent. Follow results. # bacteremia Gram-negative rods: Covering with meropenem given relative immunocompromised state. patient is on PICC line which was during the infectious , if infection did not improve we will consider removal of PICC line. Follow up final culture, continue antibiotics with meropenem and vancomycin repeat blood culture sent G. Hematology & Oncology: # Moderate thrombocytopenia: with platelet of 62, improved to 103. Avoid antiplatelets keep the patient on SCDs. # Baseline hemoglobin: unknown, presented around 7.3, 9.9. # pancreatic cancer on chemotherapy: Previously on fluorouracil, irinotecan, oxaliplatin x 9 cycles in 2020. Currently patient is getting gemcitabine and paclitaxel, but at reduced dose. # portal vein thrombosis: Newly known portal vein thrombosis, typically continue for a minimum of six months. Check renal function multiphase CT / Doppler to note extent. # right lobe of liver mass 2.7 cm: Could be related to the carcinoma. H. Nephrology: # MICHAEL due to VM in: 1.29> 1.38, likely due to sepsis, avoid nephrotoxic close follow up with I&O and daily BMP , unremarkable findings in renal ultrasound. last 24 hour urine output 300 mL unsatisfactory. I. Endocrine: # Known diabetes mellitus , insulin-dependent patient on Basaglar, close follow up with insulin supplement and cardiac/ CC diet. Check HbA1c. J. MSK: # bipedal pitting edema: likely due to CHF K. Prophylaxis: PPI: pantoprazole 40 mg daily DVT: SCDs only , with thrombocytopenia limited use of heparin/low molecular weight heparin. L. Lines & Drains (with insertion date): -patient has known [facility] for chemotherapy, -PICC line: 01/01/2025 -Cuellar's catheter: 01/02/25 M. Drips: Levophed and vasopressin N. Disposition: Remains in ED and ICU level of care The plan was discussed with the ICU attending Dr. Tovar. The patient care consists of total 84 minutes of critical care time excluding the procedures. Dictated by Manoj Hernandez MD with 3M MModal Fluency. Plan discussed with: Patient, Daughter, Other (Primary team) My Orders My Orders Orders - MANOJ HERNANDEZ Procedure Category Date Status Time Phenylephrine Iv PHA 01/02/25 In Process (Phenylephrine/Ns) 09:15 * Wound Consult CONS 01/02/25 Transmitted 09:46 * Dietary Consult CONS 01/02/25 Transmitted 09:46 Initiate Vte THAO 01/02/25 In Process Prophylaxis 09:46 Lactic Acid W/ Reflex LAB 01/02/25 Logged Order 13:54 Ceftriaxone 2gm/50ml PHA 01/02/25 Logged D5w (Rocephin 2gm/5 14:00 Urine Bacterial ABDULLAHI 01/02/25 Logged Culture 13:55 Covid19 Antigen Gloria LAB 01/02/25 Logged Respiratory Culture ABDULLAHI 01/02/25 Logged W/ Gs 13:55 Mrsa Screen ABDULLAHI 01/02/25 Logged 14:00 Ok To Access ORDERS 01/02/25 Transmitted [place]-Cath 14:00 Cefepime 1gm/ 50ml PHA 01/02/25 Logged (Maxipime 1gm/50ml) 22:00 Vancomycin Per PHA 01/02/25 Transmitted Pharmacy 14:00 Date of Service: Jan 02, 2025 Billing Provider: JAZLYN TOVAR MD Common Visit Codes: 09277-[id number] CARE 30-74 MIN, 20437-[id number] CARE-EACH +30MIN MANOJ HERNANDEZ Jan 02, 2025 14:05 JAZLYN TOVAR MD Jan 04, 2025 15:45
[2025-01-02 15:14] LABS: Lactic Acid w/Reflex 3.9 mmol/L (0.4-2.0)
[2025-01-02] MEDS: VANCOMYCIN 750MG KIT 100 ML IV ONE (15:26)
[2025-01-02] MEDS: MEROPENEM 1GM IVPB 50 ML IV ONE (18:18)
[2025-01-02 19:27] LABS: COVID19 ANTIGEN SOFIA FIA NEGATIVE (NEGATIVE)
[2025-01-02] MEDS: IPRATROPIUM BROM 0.5 MG/2.5ML INH SOL NEB ONE (21:10)
[2025-01-02] MEDS: LEVALBUTEROL HCL 1.25 MG/3 ML NEB NEB ONE (21:10)
--- NOTE | 2025-01-02 21:14 | DVHPN2 ---
Progress Note - Dictate Date Seen: Jan 02, 2025 Medical Necessity Reason Pt with a Central, PICC or Fol: Yes Subjective Patient was seen and evaluated in follow up. Patient is complaining of generalized weakness. Echocardiogram shows an EF of only 10%, marked LV enlargement, end stage systolic HF, RV dysfunction mild, mild mitral regurg, trace to mild aortic regurg, significant left sided pleural effusion appears large correlate with additional dedicated imaging, small right sided pericardial effusion. WBC 15.7, HGB 9.9, HCT 29.5, LA 3.9. Covid is negative. vital signs Vital Sign Date Time Temp Pulse Resp B/P (MAP) Pulse Ox O2 Delivery O2 Flow Rate FiO2 01/02/25 20:17 85/56 01/02/25 20:00 96 01/02/25 19:03 100 Nasal Cannula* 2 28 01/02/25 18:45 16 01/02/25 18:00 97.4 97.4 Total Intake and Output 01/01/25 01/01/25 01/02/25 15:00 23:00 07:00 Intake Total 1346.25 ml 690.0000 ml Balance 1346.25 ml 690.0000 ml medications Current Medications Medications Dose Ordered Sig/Maxi Route Start Time Stop Time Status Last Admin Dose Admin Norepinephrine Bitartrate 250 ml @ 3.75 mls/hr Q24H IV 01/01/25 17:15 01/02/25 18:43 56.25 MLS/HR Sodium Chloride 10 ml QSHIFT@10,22 IV 01/01/25 22:00 01/02/25 11:53 10 ML Aspirin 162 mg DAILY PO 01/02/25 10:00 01/02/25 09:51 162 MG Albuterol 2.5 mg Q6HPRN PRN NEB 01/02/25 01:00 Diagnostic Test (Pha) 1 strip Q6HR 01/02/25 06:00 01/02/25 18:18 1 STRIP Insulin Human Regular Q6HR SC 01/02/25 06:00 01/02/25 06:11 2 UNITS Dextrose 50 ml UD PRN IV 01/02/25 01:00 Ondansetron HCl 4 mg Q4HP PRN IV 01/02/25 01:00 Hold Acetaminophen 650 mg Q6HP PRN PO 01/02/25 01:00 Nitroglycerin 0.4 mg Q5MINP PRN SL 01/02/25 01:00 Morphine Sulfate 2 mg Q30M PRN IV 01/02/25 01:00 Phenylephrine HCl 250 ml @ 30 mls/hr Q8H20M IV 01/02/25 09:15 01/02/25 20:17 48.75 MLS/HR Vancomycin HCl 0 ml @ 0 mls/hr UD IV 01/02/25 14:00 Meropenem 50 ml @ 17 mls/hr Q12H IV 01/03/25 06:00 objective GENERAL: Awake, alert, oriented. LUNGS: Clear. CARDIOVASCULAR: Heart sounds are good. ABDOMEN: Soft. SKIN: Left forearm skin tear. laboratory and microbiology Laboratory Tests 01/02/25 01:17 Test 01/02/25 01:17 Range/Units Serum Glucose 131 H 74-106 mg/dL Problem List NSTEMI. Hypokalemia. Acute kidney injury. Transaminitis. Severe protein malnutrition. Diabetes mellitus. Pancreatic cancer status post chemotherapy. Urinary tract infection. Thrombocytopenia. Assessment/Plan Continued all current supportive medical care. Aspirin, Lipitor. IV antibiotics as ordered. Morphine for pain management. Vasopressors for hemodynamic support. Additional plan as per the hospital course. Critical care time of 45 minutes provided to include time spent evaluation of patient at bedside, when appropriate patient/family education for diagnosis, treatment plan, review of pertinent medical information and discussion of care with specialty providers and PCP. Plan discussed with: Patient MARY ALICE NAVARRO MD Jan 02, 2025 21:14
[2025-01-02] MEDS: ALBUTEROL SULF 2.5 MG/0.5ML(0.5%) NEB SOLN NEB PRN (21:21)
[2025-01-02] MEDS ORDERED: MEROPENEM 1GM IVPB 50 ML IV SCH (22:00)
[2025-01-02] MEDS ORDERED: CEFEPIME 1GM/ 50ML 50 ML IV SCH (22:00)
[2025-01-02] MEDS ORDERED: ATORVASTATIN 20 MG TAB PO SCH (22:00)
[2025-01-03] VITALS (104 sets, daily range): BP systolic 59–152; BP diastolic 37–131; PULSE 64–131; RESP 0–31; TEMP 96.7–99; O2SAT 74–100
--- NOTE | 2025-01-03 00:14 | DVH ---
INDICATION: Erik ELEVATED LFT TECHNIQUE: Multiple real-time sonographic images of the abdomen were obtained. COMPARISON: None FINDINGS: Liver is heterogeneous in echogenicity. The liver measures 17.3 cm. Portal vein appears to be thrombosed. Possible mass is seen in the right lobe of the liver measuring up to 2.7 cm. No intrahepatic biliary ductal dilatation is noted. Status post cholecystectomy. The common duct is not clearly visualized. The right kidney measures 8.3 cm. No hydronephrosis. The left kidney measures 8.8 cm. No hydronephros is. The spleen measures 7.4 cm, within normal limits. The echogenicity is within normal limits. Bilateral pleural effusions. Trace abdominal ascites. The pancreas is not well visualized due to obscuration from bowel gas. The visualized portions of the IVC and aorta are grossly unremarkable. IMPRESSION: Possible mass in the right lobe of the liver measures up to 2.7 cm. Recommend triple phase abdominal CT for further characterization. Portal vein appears to be thrombosed. Bilateral pleural effusions. Trace abdominal ascites
--- NOTE | 2025-01-03 00:14 | DVH ---
Exam: US US GUIDED VASCULAR ACCESS Date: 01/01/2025 07:47 PM Clinical History: PICC LINE PLACEMENT Comparison: None Findings: Targeted sonographic evaluation of the upper arm veinwas obtained utilizing grayscale and color Doppl er imaging. IMPRESSION: Sonographic assistance for central line placement. Please refer to procedural report for detailed fin dings.
[2025-01-03] MEDS ORDERED: AZITHROMYCIN 500MG/ 250ML 250 ML IV SCH (01:00)
[2025-01-03] MEDS ORDERED: cefTRIAXone 1GM/50ML D5W 50 ML IV SCH (02:00)
--- NOTE | 2025-01-03 05:27 | DVH ---
EXAM: XR Chest, 1 View CLINICAL INDICATION: check for pneumonia. TECHNIQUE: Frontal view of the chest. COMPARISON: None FINDINGS: LUNGS AND PLEURAL SPACES: Pulmonary congestion and edema. Pneumonia cannot be excluded. HEART: Unremarkable. No cardiomegaly. MEDIASTINUM: Unremarkable. Normal mediastinal contour. BONES/JOINTS: Unremarkable. No acute fracture. TUBES, LINES AND DEVICES: Right-sided Mediport with the distal tip in the SVC. No pneumothorax. OTHER FINDINGS: . None. . .. IMPRESSION: Pulmonary congestion and edema. Pneumonia cannot be excluded.
[2025-01-03] MEDS: MEROPENEM 1GM IVPB 50 ML IV SCH (06:05)
[2025-01-03] MEDS: PANTOPRAZOLE 40 MG/10 ML VIAL INJ IV SCH (10:53)
[2025-01-03] MEDS: FUROSEMIDE 40 MG/4 ML VIAL IV ONE (11:30)
--- NOTE | 2025-01-03 12:00 | DVHPNRES ---
Progress Note Date Seen: Jan 03, 2025 Resident Creating Document: MANOJ HERNANDEZ RESIDENT Has the PT tested + for MRSA If YES, has PT been informed?: No Medical Necessity Reason Pt with a Central, PICC or Fol: Yes The following are medically ne: PICC Line, Cuellar Catheter Reason for cuellar catheter: Strict I&O Objective vital signs Vital Sign Date Time Temp Pulse Resp B/P (MAP) Pulse Ox O2 Delivery O2 Flow Rate FiO2 01/03/25 10:50 95/64 01/03/25 08:06 100 Oxymizer 11 N/A 01/03/25 08:00 118 01/03/25 07:00 97.3 14 207.1 Total Intake and Output 01/02/25 01/02/25 01/03/25 14:59 22:59 06:59 Intake Total 629.70 ml 940.00 ml 952.50 ml Output Total 250 ml 50 ml Balance 629.70 ml 690.00 ml 902.50 ml medications Current Medications Medications Dose Ordered Sig/Maxi Route Start Time Stop Time Status Last Admin Dose Admin Norepinephrine Bitartrate 250 ml @ 3.75 mls/hr Q24H IV 01/01/25 17:15 01/03/25 07:50 56.25 MLS/HR Sodium Chloride 10 ml QSHIFT@10,22 IV 01/01/25 22:00 01/03/25 10:00 10 ML Albuterol 2.5 mg Q6HPRN PRN NEB 01/02/25 01:00 01/03/25 02:46 2.5 MG Diagnostic Test (Pha) 1 strip Q6HR 01/02/25 06:00 01/03/25 06:06 1 STRIP Insulin Human Regular Q6HR SC 01/02/25 06:00 01/02/25 06:11 2 UNITS Dextrose 50 ml UD PRN IV 01/02/25 01:00 Ondansetron HCl 4 mg Q4HP PRN IV 01/02/25 01:00 Hold Acetaminophen 650 mg Q6HP PRN PO 01/02/25 01:00 Nitroglycerin 0.4 mg Q5MINP PRN SL 01/02/25 01:00 Morphine Sulfate 2 mg Q30M PRN IV 01/02/25 01:00 Phenylephrine HCl 250 ml @ 30 mls/hr Q8H20M IV 01/02/25 09:15 01/03/25 10:50 86.25 MLS/HR Vancomycin HCl 0 ml @ 0 mls/hr UD IV 01/02/25 14:00 Meropenem 50 ml @ 17 mls/hr Q12H IV 01/03/25 06:00 01/03/25 06:05 17 MLS/HR Pantoprazole Sodium 40 mg DAILY IV 01/03/25 10:00 01/03/25 10:53 40 MG Examination GENERAL:Normal (Mild distress), HEENT:Normal, NECK:Normal, LUNGS:Abnormal (Bilateral crackles, productive cough, on 11 L of high-flow nasal cannula oxygen), CVS:Normal (Elevated JVP), ABDOMEN:Normal (Nontender), MSK:Abnormal (Bilateral pedal edema, pitting), SKIN:Normal, NEURO:Normal, :Normal (On Cuellar's catheter) laboratory and microbiology Test 01/03/25 10:53 Range/Units Serum Glucose Pending Microbiology Date/Time Source Procedure Growth Status 01/02/25 01:17 Blood Blood Culture - Preliminary Resulted Labs and/or images reviewed: Labs reviewed by me, Image(s) reviewed by me (primary team. ) Problem List/Assessment/Plan Problem List/Assessment/Plan ICU Course: A 69-year-old female with a history of pancreatic cancer and diabetes mellitus presented with generalized weakness. She is undergoing weekly chemotherapy at [facility]. Her family noted she has become progressively weaker and more lethargic. During transport, her blood pressure was in the 70s. Currently, she is alert and oriented, experiencing mild dizziness but no headache, blurred vision, chest pain, shortness of breath, abdominal pain, nausea, vomiting, fever, or chills. No other acute complaints were reported. Patient was found to have heart failure with reduced ejection fraction around 10% EF, CHF exacerbation, MICHAEL, portal vein thrombosis, volume overloaded state, bilateral pneumonia, UTI and acute hypoxic respiratory failure. Hospitalization day: 3 A. Neurology: the patient is alert, oriented but poor historian, as per family baseline ADLs intact. # insomnia: patient is on trazodone 50 mg at night, we will hold since patient is somnolent. Avoid medications with beers criteria. # mild territorial ischemia likely age-related: Noted in CT head noncontrast B. Cardiology: # hypotension secondary to Septic shock: although there could be a component of HF low ejection fraction, patient on 2 pressors keep the map over 65. # HFrEF: TTE/echo 10% ejection fraction, dilated cardiomyopathy. Likely due to cardiotoxic chemotherapy, IV Lasix diuresis as needed. Irinotecan and oxaliplatin are generally less associated with cardiotoxicity, where Fluorouracil (5-FU), Gemcitabine, Paclitaxel are highly cardio toxic. Further discussion needed with the primary oncologist. # acute on chronic heart failure: Moderate fluid overloaded state, bilateral pedal edema 3+, congestion as well as hypervolemic state/ Bilateral pedal edema: Patient was started on furosemide 20 mg tab recently but no further workup was done for heart failure. Trial of Lasix IV 40 mg, consider starting the patient on Lasix drip. C. Respiratory: # Acute hypoxic respiratory failure: Likely due to CHF exacerbation, Questionable pneumonia. check CXR tomorrow, unchanged pulmonary edema, sputum culture sent follow results, check for influenza, COVID negative. Worsening hypoxia with 11 L of high-flow nasal cannula. # bilateral pleural effusion: Likely due to fluid overload state/CHF exacerbation # possible atypical pneumonia: Workup in pending sputum culture. D. Gastrointestinal: # Known pancreatic cancer : since 1999, status post Whipple's surgery 2022, patient was on remission but had 2023 patient was found to have resurfacing of pancreatic cancer since then patient is every Thursday going to [facility] for chemotherapy. # History of Whipple's surgery in 2022 # Nausea secondary to chemotherapy: As needed ondansetron, Compazine # Transaminitis: Mild elevation of the bilirubin 1.1, AST ALT and alkaline phosphatase elevated: Likely due to conditions/septic shock/ atorvastatin, hold atorvastatin CMP follow up trending. # trace abdominal ascites: Likely due to fluid overload state, abdominal examination unremarkable. E. Genitourinary: # incontinence: on Cuellar's catheter # UTI: urinalysis positive no previous culture available, on broad-spectrum a ntibiotics meropenem should cover possible gram negatives, urine culture pending. F. Infectious Disease: # severe sepsis secondary due to UTI : On broad antibiotic coverage of meropenem and vancomycin day 2. # lactic acidosis 3.2> 3.9: 250 cc of Ringer lactate given, limited scope of fluid resuscitation due to heart failure, repeat lactate today. # possible sepsis secondary due to community-acquired pneumonia Gram-positive Gram-negative: sputum culture pending , continue vancomycin till then Along with Gram-negative coverage, check for # UTI: Could be Gram-negative , no previous urinalysis found, urine culture and blood culture sent. Follow results. # bacteremia Gram-negative rods: Covering with meropenem given relative immunocompromised state. patient is on PICC line which was during the infectious , if infection did not improve we will consider removal of PICC line. Follow up final culture, continue antibiotics with meropenem and vancomycin repeat blood culture sent G. Hematology & Oncology: # Moderate thrombocytopenia: with platelet of 62, improved to 103. Avoid antiplatelets keep the patient on SCDs. # Baseline hemoglobin: unknown, presented around 7.3, 9.9. # pancreatic cancer on chemotherapy: Previously on fluorouracil, irinotecan, oxaliplatin x 9 cycles in 2020. Currently patient is getting gemcitabine and paclitaxel, but at reduced dose. # portal vein thrombosis: Limited due to thrombocytopenia and fluid overload state to start for IV heparin drip. Newly known portal vein thrombosis, typically continue for a minimum of six months. Check renal function multiphase CT / Doppler to note extent. # right lobe of liver mass 2.7 cm: Could be related to the carcinoma. H. Nephrology: # MICHAEL due to VM in: 1.29> 1.38, likely due to sepsis, avoid nephrotoxic close follow up with I&O and daily BMP , unremarkable findings in renal ultrasound. last 24 hour urine output 300 mL unsatisfactory. I. Endocrine: # diabetes mellitus, insulin dependent: on Basaglar, close follow up with insulin supplement and cardiac/ CC diet. HbA1c 9 0.6, uncontrolled, target bl ood glucose 140-180 postprandial in-hospital acute care. J. MSK: # bipedal pitting edema: likely due to CHF K. Prophylaxis: PPI: pantoprazole 40 mg daily DVT: SCDs only , with thrombocytopenia limited use of heparin/low molecular weight heparin. L. Lines & Drains (with insertion date): -patient has known MediPort for chemotherapy, -PICC line: 01/01/2025 -Cuellar's catheter: 01/02/25 M. Drips: Levophed and vasopressin N. Disposition: Remains in ED and ICU level of care, patient lives with daughter, spoke with the daughters for further history, for four years she has been consistent with DNR/DNI, document signed, code status changed to DNR/DNI The plan was discussed with the ICU attending Dr. Tovar. The patient care consists of total 86 minutes of critical care time excluding the procedures. Dictated by Manoj Hernandez MD with 3M MModal Fluency. Plan discussed with: Patient, Daughter, Other My Orders My Orders Orders - MANOJ HERNANDEZ Procedure Category Date Status Time Urine Bacterial ABDULLAHI 01/02/25 Logged Culture 13:55 Respiratory Culture ABDULLAHI 01/02/25 Logged W/ Gs 13:55 Mrsa Screen ABDULLAHI 01/02/25 In Process 14:00 Ok To Access ORDERS 01/02/25 Transmitted Mod[place]-Cath 14:00 Vancomycin Per PHA 01/02/25 In Process Pharmacy 14:00 Complete Blood Count LAB 01/03/25 Logged 04:00 Vancomycin,Random LAB 01/03/25 In Process 04:00 Chest Xray 1 View XY 01/03/25 Resulted 04:00 Abdomen Complete US 01/02/25 Resulted Sonogram 20:55 Comprehensive LAB 01/03/25 In Process Metabolic Panel 04:00 Pantoprazole PHA 01/03/25 In Process (Protonix) 10:00 Blood Culture ABDULLAHI 01/03/25 In Process 04:00 Rapid Influenza A&B LAB 01/03/25 Logged 11:10 Lactic Acid W/ Reflex LAB 01/03/25 In Process Order 11:10 Code Status CODE 01/03/25 Transmitted 11:10 Furosemide Injection PHA 01/03/25 In Process (Lasix Injection) 11:30 Date of Service: Jan 02, 2025 Billing Provider: JAZLYN TOVAR MD Common Visit Codes: 52454-RDBXCEBM CARE 30-74 MIN, 17190-HGXHQRCN CARE-EACH +30 MIN MANOJ HERNANDEZ Jan 03, 2025 12:00 JAZLYN TOVAR MD Jan 03, 2025 15:03
[2025-01-03 12:02] LABS: Lactic Acid w/Reflex 8.2 mmol/L (0.4-2.0)
[2025-01-03 12:28] LABS: Anion Gap 15 (5-15); BUN/Creatinine Ratio 20.1 (10.0-20.0); Potassium 4.5 mmol/L (3.5-5.1); Sodium 140 mmol/L (136-145)
[2025-01-03 12:42] LABS: Alanine Aminotransferase 307 U/L (7-40); Albumin 2.1 g/dL (3.2-4.8); Alkaline Phosphatase 301 U/L (46-116); Aspartate Aminotransferase 595 U/L (13-40); Bilirubin, Total 1.7 mg/dL (0.2-1.0); Blood Urea Nitrogen 30 mg/dL (9-23); Calcium 8.7 mg/dL (8.7-10.4); Carbon Dioxide 15 mmol/L (20-31); Chloride 110 mmol/L (98-107); Glucose 109 mg/dL (74-106); Total Protein 4.2 g/dL (5.7-8.2)
[2025-01-03 13:32] LABS: Hemoglobin 10.2 g/dL (12.2-16.2); Mean Corpuscular Hemoglobin 31.6 pg (28.0-32.0)
[2025-01-03 13:37] LABS: Hematocrit 31.6 % (36.0-46.0); Mean Corpuscular Hgb Conc. 32.3 g/dL (32.0-36.0); Mean Corpuscular Volume 97.9 fL (80.0-100.0); Platelet Count (auto) 58 10^3/uL (140-450); Red Blood Cells 3.22 10^6/uL (4.0-5.20); Red Cell Distribution Width 17.4 % (11.8-14.3); White Blood Cell 15.8 10^3/uL (4.4-10.8)
[2025-01-03 13:42] LABS: Basophils % (manual) 0 (0.0-2.0); Blast Cells 0; Eosinophils % (manual) 0 (0-7); Metamyelocytes % 0; Monocytes % (manual) 0 (0-12); Myelocytes % 0; Promyelocytes % 0; Reactive Lymphocytes 0
[2025-01-03 14:33] LABS: Band Neutrophils % (manual) 6; Lymphocytes % (manual) 11 (10.0-50.0); Platelet Estimate Decreased
[2025-01-03 14:34] LABS: Giant Platelets Moderate
[2025-01-03 15:08] LABS: INR 2.65 (0.9-1.15); Prothrombin Time 25.5 sec (9.3-11.8)
[2025-01-03] MEDS: PHENYLEPHRINE INJ 80 MG in SODIUM CHL 0.9% 242 ML IV SCH (15:29)
[2025-01-03] MEDS: VANCOMYCIN 750mg/150ml 150 ML IV ONE (15:30)
[2025-01-03] MEDS: NOREPINEPHRINE BITARTRATE 32 MG in SODIUM CHL 0.9% 218 ML IV SCH (15:30)
[2025-01-03] MEDS: LIDOCAINE 5% TOPICAL PATCH TOP SCH (15:31)
[2025-01-03] MEDS: MORPHINE SULFATE INJ 2 MG/ml SYRG IV PRN (15:37)
[2025-01-03] MEDS: FUROSEMIDE 20 MG/2 ML VIAL IV ONE (15:40)
[2025-01-03] MEDS: VASOPRESSIN 20 UNITS in SODIUM CHL 0.9% 99 ML IV SCH (16:42)
--- NOTE | 2025-01-03 16:51 | DVHPN2 ---
Progress Note - Dictate Date Seen: Jan 03, 2025 Has the PT tested + for MRSA If YES, has PT been informed?: No Medical Necessity Reason Pt with a Central, PICC or Fol: Yes The following are medically ne: PICC Line, Cuellar Catheter Reason for cuellar catheter: Strict I&O Subjective Patient was seen and evaluated in follow up in the ICU. Patient is complaining of productive cough with SOB. Patient is on 11 L via Oxymizer. 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 Chest x-ray shows pulmonary congestion and edema. vital signs Vital Sign Date Time Temp Pulse Resp B/P (MAP) Pulse Ox O2 Delivery O2 Flow Rate FiO2 01/03/25 15:40 92/64 01/03/25 15:37 123 24 01/03/25 15:07 97 Oxymizer 11 N/A 01/03/25 12:00 97.3 207.1 Total Intake and Output 01/02/25 01/02/25 01/03/25 15:00 23:00 07:00 Intake Total 682.20 ml 940.00 ml 847.50 ml Output Total 250 ml 50 ml Balance 682.20 ml 690.00 ml 797.50 ml medications Current Medications Medications Dose Ordered Sig/Maxi Route Start Time Stop Time Status Last Admin Dose Admin Sodium Chloride 10 ml QSHIFT@10,22 IV 01/01/25 22:00 01/03/25 10:00 10 ML Albuterol 2.5 mg Q6HPRN PRN NEB 01/02/25 01:00 01/03/25 02:46 2.5 MG Diagnostic Test (Pha) 1 strip Q6HR 01/02/25 06:00 01/03/25 12:10 1 STRIP Insulin Human Regular Q6HR SC 01/02/25 06:00 01/02/25 06:11 2 UNITS Dextrose 50 ml UD PRN IV 01/02/25 01:00 Ondansetron HCl 4 mg Q4HP PRN IV 01/02/25 01:00 Hold Acetaminophen 650 mg Q6HP PRN PO 01/02/25 01:00 Nitroglycerin 0.4 mg Q5MINP PRN SL 01/02/25 01:00 Morphine Sulfate 2 mg Q30M PRN IV 01/02/25 01:00 Vancomycin HCl 0 ml @ 0 mls/hr UD IV 01/02/25 14:00 Meropenem 50 ml @ 17 mls/hr Q12H IV 01/03/25 06:00 01/03/25 06:05 17 MLS/HR Pantoprazole Sodium 40 mg DAILY IV 01/03/25 10:00 01/03/25 10:53 40 MG Lidocaine 1 patch DAILY TOP 01/04/25 10:00 01/03/25 15:31 1 PATCH Phenylephrine HCl 80 mg/Sodium Chloride 250 ml @ 7.5 mls/hr Q24H IV 01/03/25 14:45 01/03/25 15:29 21.563 MLS/HR Norepinephrine Bitartrate 32 mg/ Sodium Chloride 250 ml @ 0.938 mls/ hr Q24H IV 01/03/25 14:45 01/03/25 15:30 14.063 MLS/HR Morphine Sulfate 1 mg Q4HP PRN IV 01/03/25 15:00 01/03/25 15:37 1 MG objective GENERAL: Awake, alert, oriented. LUNGS: Clear. CARDIOVASCULAR: Heart sounds are good. ABDOMEN: Soft. SKIN: Left forearm skin tear. laboratory and microbiology Laboratory Tests 01/03/25 13:06 01/03/25 10:53 Test 01/03/25 10:53 Range/Units Serum Glucose 109 H 74-106 mg/dL Problem List NSTEMI. Hypokalemia. Acute kidney injury. Transaminitis. Severe protein malnutrition. Diabetes mellitus. Pancreatic cancer status post chemotherapy. Urinary tract infection. Thrombocytopenia. Assessment/Plan Continued all current supportive medical care. Aspirin, Lipitor. IV antibiotics as ordered. Morphine for pain management. Vasopressors for hemodynamic support. Additional plan as per the hospital course. Critical care time of 45 minutes provided to include time spent evaluation of patient at bedside, when appropriate patient/family education for diagnosis, treatment plan, review of pertinent medical information and discussion of care with specialty providers and PCP. Dietary Evaluation Review Comments: 1. Recommend oral nutrition supplements of Ensure Enlive BID if pt becomes amenable (discussed with patient, patient refused at this time) 2. Continue daily weights, strict I&O's to monitor fluid status 3. Encourage PO intakes >75% of meals to enhance overall nutrition Expected Outcomes/Goals: Optimize nutrition Muscle Mass (Severe): Mod to Severe Depletion Fluid Accumulation (Severe): Moderate Fluid Retention Protein Calorie Malnutrition: Severe Is there a minimum of two crit: Yes Plan discussed with: Patient MARY ALICE NAVARRO MD Jan 03, 2025 16:51
[2025-01-03] MEDS: EPINEPHrine HCL INJECTION 16 MG in D5W 5% 234 ML IV SCH (17:09)
[2025-01-04] VITALS (55 sets, daily range): BP systolic 33–119; BP diastolic 13–82; PULSE 50–131; RESP 0–24; TEMP 96.3–97.9; O2SAT 45–99
[2025-01-04] MEDS: DOPamine 3200MCG/ML 250 ML IV SCH (02:28)
[2025-01-04 04:31] LABS: Base Excess -17.4 mmol/L (-2.0-3.0)
[2025-01-04] MEDS: DEXTROSE (50%) 50ML SYRG IV PRN (05:24)
[2025-01-04] MEDS: SODIUM BICARB 8.4% 50Meq/50ml SYR Vial IV ONE ×3 (05:38→08:52)
[2025-01-04] MEDS: SODIUM BICARB 50mEq/50ml Vial 100 ML in D5W 5% 1,000 ML IV SCH (05:43)
[2025-01-04 05:45] LABS: Hematocrit 34.9 % (36.0-46.0); Hemoglobin 10.8 g/dL (12.2-16.2); Mean Corpuscular Hemoglobin 32.7 pg (28.0-32.0); Mean Corpuscular Hgb Conc. 30.9 g/dL (32.0-36.0); Mean Corpuscular Volume 105.9 fL (80.0-100.0); Platelet Count (auto) 44 10^3/uL (140-450); Red Cell Distribution Width 18.9 % (11.8-14.3); White Blood Cell 17.2 10^3/uL (4.4-10.8)
[2025-01-04 05:55] LABS: Anion Gap 19.00001 (5-15); BUN/Creatinine Ratio 17.4 (10.0-20.0); Calcium 8.7 mg/dL (8.7-10.4); Potassium 4.7 mmol/L (3.5-5.1); Sodium 141 mmol/L (136-145)
[2025-01-04 05:57] LABS: Basophils % (manual) 0 (0.0-2.0); Blast Cells 0; Eosinophils % (manual) 0 (0-7); Metamyelocytes % 0; Myelocytes % 0; Promyelocytes % 0; Reactive Lymphocytes 0
[2025-01-04] MEDS: PHENYLEPHRINE HCL 10 MG/ML VL ONE (05:57)
[2025-01-04 06:01] LABS: Alkaline Phosphatase 367 U/L (46-116); Bilirubin, Total 2.7 mg/dL (0.2-1.0); Blood Urea Nitrogen 30 mg/dL (9-23); Chloride 112 mmol/L (98-107); Glucose 72 mg/dL (74-106); Total Protein 4.5 g/dL (5.7-8.2)
[2025-01-04 06:02] LABS: Carbon Dioxide < 10 mmol/L (20-31)
[2025-01-04 06:07] LABS: Alanine Aminotransferase 1161 U/L (7-40)
[2025-01-04 06:15] LABS: Aspartate Aminotransferase 2897 U/L (13-40)
[2025-01-04 06:38] LABS: Band Neutrophils % (manual) 4; Lymphocytes % (manual) 3 (10.0-50.0); Monocytes % (manual) 3 (0-12)
[2025-01-04 06:39] LABS: Giant Platelets Few; Platelet Estimate Decreased
[2025-01-04] MEDS: MORPHINE SULFATE 4 MG/ML SYR/VIAL IV PRN (09:27)
[2025-01-04] MEDS ORDERED: FLEET ENEMA(ADULT) 135 ML PR PRN (09:30)
[2025-01-04] MEDS ORDERED: ONDANSETRON HCL 4 MG/2 ML VIAL IV PRN (09:30)
[2025-01-04] MEDS: LORazepam 2MG/ML-1ML VIAL IV PRN (10:04)
--- NOTE | 2025-01-04 12:50 | ECG ---
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
--- NOTE | 2025-01-04 14:10 | PRN ---
Misceleneous Note Note Note Declaration Summary: A 69-year-old female with a history of pancreatic cancer and diabetes mellitus presented with generalized weakness. She is undergoing weekly chemotherapy at [facility]. Her family noted she has become progressively weaker and more lethargic. During transport, her blood pressure was in the 70s. Currently, she is alert and oriented, experiencing mild dizziness but no headache, blurred vision, chest pain, shortness of breath, abdominal pain, nausea, vomiting, fever, or chills. No other acute complaints were reported. Patient was found to have heart failure with reduced ejection fraction around 10% EF, CHF exacerbation, MICHAEL, portal vein thrombosis, volume overloaded state, bilateral pneumonia, UTI and acute hypoxic respiratory failure. She progressed to multiorgan failure and then patient was change to comfort care measures. Notified by the nurse that the patient was in asystole and unresponsive Detailed bedside examination revealed: -The patient was unresponsive to verbal or painful stimuli. -Spontaneous Heart and lung sounds are absent. -No spontaneous cardiac or respiratory activity noted over 5 minutes. -No corneal pupillary reflex present while checked twice. -Pupils are fixed and dilated over the examination period. The patient was pronounced clinically at 11:56 AM of date 01/04/2025 by Manoj Hernandez MD, resident. Patient's family and patient's nurse were updated by the healthcare team. Appropriate and empathic condolences were provided to the patient's dear ones. MANOJ HERNANDEZ RESIDENT Jan 04, 2025 14:10
--- NOTE | 2025-01-04 14:11 | DVHDSRES ---
Discharge Summary Date of Admission Resident Creating Document: ALEXANDRIA HERNANDEZ RESIDENT Jan 02, 2025 at 00:50 Date of Discharge: Jan 04, 2025 Admitting Diagnosis Severe sepsis secondary to UTI and community-acquired pneumonia with CHF exacerbation Wounds: Sacral blanching the unstaged wound POA Labs/Diagnostic Data: Laboratory Results Test 01/04/25 08:51 01/04/25 04:59 01/04/25 04:25 01/03/25 13:06 POC Glucose 149 mg/dl (70-106) White Blood Count 17.2 10^3/uL (4.4-10.8) Red Blood Count 3.30 10^6/uL (4.0-5.20) Hemoglobin 10.8 g/dL (12.2-16.2) Hematocrit 34.9 % (36.0-46.0) Mean Corpuscular Volume 105.9 fL (80.0-100.0) Mean Corpuscular Hemoglobin 32.7 pg (28.0-32.0) Mean Corpuscular Hemoglobin Concent 30.9 g/dL (32.0-36.0) Red Cell Distribution Width 18.9 % (11.8-14.3) Platelet Count 44 10^3/uL (140-450) Mean Platelet Volume 11.2 fL (6.9-10.8) Neutrophils (%) (Auto) % (37.0-80.0) Lymphocytes (%) (Auto) % (10.0-50.0) Monocytes (%) (Auto) % (0.0-12.0) Basophils (%) (Auto) % (0.0-2.0) Neutrophils # (Auto) 10 ^3/uL (1.6-8.6) Lymphocytes # (Auto) 10 ^3/uL (0.4-5.4) Monocytes # (Auto) 10 ^3/uL (0-1.3) Differential Total Cells Counted 100.0 (100) Neutrophils % (Manual) 90 (37.0-80.0) Band Neutrophils % (Manual) 4 Lymphocytes % (Manual) 3 (10.0-50.0) Monocytes % (Manual) 3 (0-12) Eosinophils % (Manual) 0 (0-7) Basophils % (Manual) 0 (0.0-2.0) Metamyelocytes % (manual) 0 Myelocytes % (Manual) 0 Promyelocytes % (Manual) 0 Blast Cells % (Manual) 0 Nucleated Red Blood Cells 15.0 % Reactive Lymphocytes 0 Platelet Estimate Decreased Giant Platelets Few Sodium Level 141 mmol/L (136-145) Potassium Level 4.7 mmol/L (3.5-5.1) Chloride Level 112 mmol/L (98-107) Carbon Dioxide Level < 10 mmol/L (20-31) Anion Gap 19.77953 (5-15) Blood Urea Nitrogen 30 mg/dL (9-23) Creatinine 1.72 mg/dL (0.550-1.02) Glomerular Filtration Rate Calc 32 mL/min (>90) BUN/Creatinine Ratio 17.4 (10.0-20.0) Serum Glucose 72 mg/dL (74-106) Calcium Level 8.7 mg/dL (8.7-10.4) Total Bilirubin 2.7 mg/dL (0.2-1.0) Aspartate Amino Transferase (AST) 2897 U/L (13-40) Alanine Aminotransferase (ALT) 1161 U/L (7-40) Alkaline Phosphatase 367 U/L (46-116) Total Protein 4.5 g/dL (5.7-8.2) Albumin 2.0 g/dL (3.2-4.8) Random Vancomycin Level 10.8 ug/mL (5-10) Blood Gas Specimen Type Arterial Blood Gas Sample Site Right radial Blood Gas Patient Temperature 37.0 Arterial Blood Date Drawn [id number] Arterial Blood pH 7.227 (7.350-7.450) Arterial Blood Partial Pressure CO2 20.7 mmHg (32.0-45.0) Arterial Blood Partial Pressure O2 57.3 mmHg (83.0-108.0) Arterial Blood HCO3 8.4 mmol/L (21.0-28.0) Arterial Blood Oxygen Saturation 80.6 % (94.0-98.0) Arterial Blood Base Excess -17.4 mmol/L (-2.0-3.0) Arterial Blood Oxyhemoglobin 80.2 % (94.0-98.0) Arterial Blood Carboxyhemoglobin 0.3 % (0.5-1.5) Arterial Blood Methemoglobin 0.2 % (0.0-1.5) Jarrell Test Modified Blood Gas Total Hemoglobin 10.00 g/dL (12.0-16.0) Blood Gas Liter Flow 11.00 Blood Gas Modality Oxymizer FiO2 % 77.0 Blood Gas Critical Value Read Back Yes Blood Gas Notified Whom lamine Hernandez md Blood Gas Notified Time [id number] Blood Gas Notified By carline Armstrong, tomas Prothrombin Time 25.5 sec (9.3-11.8) Prothrombin Time INR 2.65 (0.9-1.15) Activated Partial Thromboplast Time 51.0 SEC (24.5-34.5) Fibrinogen 148 mg/dL (177-375) D-Dimer, Quantitative 21.86 mg/L FEU (0.0-0.49) Lactic Acid Level 8.2 mmol/L (0.4-2.0) Test 01/02/25 14:31 01/02/25 01:17 01/01/25 22:04 01/01/25 19:25 SARS-CoV-2 Antigen (Rapid) Negative (NEGATIVE) Eosinophils (%) (Auto) 0.0 % (0.0-7.0) Eosinophils # (Auto) 0 10 ^3/uL (0-0.8) Basophils # (Auto) 0 10 ^3/uL (0-0.2) Hemoglobin A1c 9.6 % A1C (<5.7) Urine Color Yellow (Yellow) Urine Clarity Turbid (Clear) Urine pH 5.5 (5.0-9.0) Urine Specific Pavilion 1.020 (1.001-1.035) Urine Protein 1+ (Negative) Urine Ketones Trace (Negative) Urine Blood Negative /uL (Negative) Urine Nitrite Negative (Negative) Urine Bilirubin Negative (Negative) Urine Urobilinogen 2 mg/dL (Negative) Urine Leukocyte Esterase 1+ /uL (Negative) Urine RBC 10 /hpf (0 - 4) Urine Microscopic WBC 26 /HPF (0-5) Urine Squamous Epithelial Cells Few /hpf (<5) Urine Bacteria Many /hpf (None Seen) Urine Mucus Few (None Seen) Urine Glucose Normal mg/dL (Normal) Troponin I High Sensitivity 99793 ng/L (</=34) Test 01/01/25 16:51 Large Platelets Few Ammonia < 10 umol/L (11-32) B-Type Natriuretic Peptide 166.06 pg/mL (0-100) Lipase 12 U/L (12-53) Other Laboratory Tests 01/04/25 04:59 Brief Hx & Hospital Course: discharge summary: A 69-year-old female with a history of pancreatic cancer and diabetes mellitus presented with generalized weakness. She is undergoing weekly chemotherapy at [facility]. Her family noted she has become progressively weaker and more lethargic. During transport, her blood pressure was in the 70s. Currently, she is alert and oriented, experiencing mild dizziness but no headache, blurred vision, chest pain, shortness of breath, abdominal pain, nausea, vomiting, fever, or chills. No other acute complaints were reported. Patient was found to have heart failure with reduced ejection fraction around 10% EF, CHF exacerbation, MICHAEL, portal vein thrombosis, volume overloaded state, bilateral pneumonia, UTI and acute hypoxic respiratory failure. Overnight patient developed multiorgan failure, anuria and can not maintain blood pressure despite increasing titer of 5 vasopressors, on day 4th of hospitalization patient family considered for comfort level of care with extremely poor prognosis with life expectancy less than a few hours. DNR/DNI, chemical code further discussion revealed family wants to withdraw aggressive care. Shortly after withdrawing of aggressive care patient was found clinically at 11:56:00 a.m. Medical conditions treated in hospital: # metabolic encephalopathy # insomnia # mild territorial ischemia likely age-related: # severe Septic shock multiorgan failure # HFrEF: TTE/echo 10% ejection fraction, dilated cardiomyopathy. Likely due to cardiotoxic chemotherapy # acute on chronic heart failure # Acute hypoxic respiratory failure # aspiration/community-acquired pneumonia Gram-negative /Gram-positive # bilateral pleural effusion # possible atypical pneumonia # Known pancreatic cancer : since 1999 currently on chemotherapy # History of Whipple's surgery in 2022 # Nausea secondary to chemotherapy: # Transaminitis # trace abdominal ascites # incontinence: on Del Rosario's catheter # urinary tract infection, on broad spectrum antibiotics # severe sepsis secondary due to UTI and community-acquired pneumonia Gram- positive Gram-negative # lactic acidosis # bacteremia Gram-negative rods: Aeromonas caviae and Klebsiella oxytoca # multiorgan failure: secondary to septic shock multiple organ failure, elevated lactate, heart failure, respiratory failure, renal failure, worsening leukocytosis # Moderate thrombocytopenia # normocytic anemia, symptomatic # portal vein thrombosis # right lobe of liver mass 2.7 cm # MICHAEL due to VMN progressed to acute renal failure # high anion gap metabolic acidosis with bicarbonate <10. # diabetes mellitus, insulin dependent # bipedal pitting edema # poor peripheral perfusion likely due to poor peripheral vasculature The plan was discussed with the ICU attending Dr. Quick. Goals of care and discharge discussion consists of total 26 minutes of detailed discussion. Consults/Reason for consult Cardiology Operations or Procedures [place] [address] Ph: [phone] DIAGNOSTIC IMAGING Diagnostic Imaging Report : [id number] Signed PATIENT: ACACIA SMILEY ACCT: [id number] UNIT: [id number] : 1955 LOC: ICU WEST ROOM / BED: [facility] / A AGE / SEX: 69 / F ADM STATUS: ADM IN SERVICE 9 ORDERING PHYSICIAN: ALEXANDRIA HERNANDEZ RESIDENT PROCEDURE(s): CXR1 - CHEST XRAY 1 VIEW REASON: check for pneumonia. ORDER NUMBER(s): [id number], ACCESSION NUMBER(s): [id number] EXAM: XR Chest, 1 View CLINICAL INDICATION: check for pneumonia. TECHNIQUE: Frontal view of the chest. COMPARISON: None FINDINGS: LUNGS AND PLEURAL SPACES: Pulmonary congestion and edema. Pneumonia cannot be excluded. HEART: Unremarkable. No cardiomegaly. MEDIASTINUM: Unremarkable. Normal mediastinal contour. BONES/JOINTS: Unremarkable. No acute fracture. TUBES, LINES AND DEVICES: Right-sided Mediport with the distal tip in the SVC. No pneumothorax. OTHER FINDINGS: . None. . .. IMPRESSION: Pulmonary congestion and edema. Pneumonia cannot be excluded. ATED BY: JAVIER JACOBS MD DICTATED DATE/TIME: 01/03/25524 SIGNED BY: JAVIER JACOBS MD SIGNED DATE/TIME: 01/03/25524 CC: [place] [address] Ph: [phone] DIAGNOSTIC IMAGING Diagnostic Imaging Report : [id number] Signed PATIENT: ACACIA SMILEY ACCT: [id number] UNIT: [id number] : 1955 LOC: TELE ROOM / BED: [address] [place] [address] A AGE / SEX: 69 / F ADM STATUS: ADM IN SERVICE 54 ORDERING PHYSICIAN: ALEXANDRIA HERNANDEZ PROCEDURE(s): ABDC - ABDOMEN COMPLETE SONOGRAM REASON: Michael ELEVATED LFT ORDER NUMBER(s): [id number], ACCESSION NUMBER(s): [id number] INDICATION: Michael ELEVATED LFT TECHNIQUE: Multiple real-time sonographic images of the abdomen were obtained. COMPARISON: None FINDINGS: Liver is heterogeneous in echogenicity. The liver measures 17.3 cm. Portal vein appears to be thrombosed. Possible mass is seen in the right lobe of the liver measuring up to 2.7 cm. No intrahepatic biliary ductal dilatation is noted. Status post cholecystectomy. The common duct is not clearly visualized. The right kidney measures 8.3 cm. No hydronephrosis. The left kidney measures 8.8 cm. No hydronephrosis. The spleen measures 7.4 cm, within normal limits. The echogenicity is within normal limits. Bilateral pleural effusions. Trace abdominal ascites. The pancreas is not well visualized due to obscuration from bowel gas. The visualized portions of the IVC and aorta are grossly unremarkable. IMPRESSION: Possible mass in the right lobe of the liver measures up to 2.7 cm. Recommend triple phase abdominal CT for further characterization. Portal vein appears to be thrombosed. Bilateral pleural effusions. Trace abdominal ascites ATED BY: KAREN SANDERS MD DICTATED DATE/TIME: 01/03/2511 SIGNED BY: KAREN SANDERS MD SIGNED DATE/TIME: 01/03/2511 CC: [place] [address] Ph: [phone] DIAGNOSTIC IMAGING Diagnostic Imaging Report : [id number] Signed PATIENT: ACACIA SMILEY ACCT: [id number] UNIT: [id number] : 1955 LOC: [facility] ROOM / BED: [address] [place] [address] AGE / SEX: 69 / F ADM STATUS: ADM IN SERVICE 57 ORDERING PHYSICIAN: SHELLY ZAVALA MD PROCEDURE(s): USGUIVASAC - US Guided Vascular Access REASON: PICC LINE PLACEMENT ORDER NUMBER(s): [id number], ACCESSION NUMBER(s): [id number] Exam: US US GUIDED VASCULAR ACCESS Date: 01/01/2025 07:47 PM Clinical History: PICC LINE PLACEMENT Comparison: None Findings: Targeted sonographic evaluation of the upper arm veinwas obtained utilizing grayscale and color Doppler imaging. IMPRESSION: Sonographic assistance for central line placement. Please refer to procedural report for detailed findings. ATED BY: HADLEY DOWNS MD DICTATED DATE/TIME: 01/03/259 SIGNED BY: HADLEY DOWNS MD SIGNED DATE/TIME: 01/03/259 CC: [place] [id number] Ph: [phone] DIAGNOSTIC IMAGING Diagnostic Imaging Report : [id number] Signed PATIENT: ACACIA SMILEY ACCT: [id number] UNIT: [id number] : 1955 LOC: ER ROOM / BED: / AGE / SEX: 69 / F ADM STATUS: REG ER SERVICE 1542 ORDERING PHYSICIAN: PAM HOANG MD PROCEDURE(s): HWOCT - HEAD WITHOUT CONTRAST REASON: [facility] ORDER NUMBER(s): [id number], ACCESSION NUMBER(s): [id number] EXAM: CT HEAD WITHOUT CONTRAST INDICATION: ams TECHNIQUE: CT of the head without intravenous contrast. Radiation Dose Information: CT Dose: CTDI volume is 51.44 mGy. Dose-length product is 911.09 mGy*cm The dose indicators for CT are the volume Computed Tomography (CT) Dose Index (CTDIvol) and the Dose Length Product (DLP), and are measured in units of mGy and mGy-cm, respectively. These indicators are not patient dose, but values generated from the CT scanner acquisition factors. The report includes radiation exposure data for exposures received during this examination. COMPARISON: None FINDINGS: There is no evidence of acute intracranial hemorrhage, extra-axial collection, mass effect, midline shift, herniation or hydrocephalus. The ventricles, sulci and cisterns are age appropriate. The morales-white differentiation is intact. Patchy periventricular and subcortical white matter hypoattenuation is nonspecific but may be related to small vessel ischemic disease. The visualized paranasal sinuses and mastoid air cells are clear. The surrounding soft tissues and osseous structures are unremarkable. IMPRESSION: 1. No acute intracranial hemorrhage 2. No CT findings displaced skull fracture 3. CT findings of territorial ischemia. ATED BY: NYLA HOWARD Jr., DO DICTATED DATE/TIME: 01/01/251840 SIGNED BY: NYLA HOWARD Jr., SIGNED DATE/TIME: 01/01/251840 CC: [place] [address] Ph: [phone] DIAGNOSTIC IMAGING Diagnostic Imaging Report : [id number] Signed PATIENT: ACACIA SMILEY ACCT: [id number] UNIT: [id number] : 1955 LOC: ER ROOM / BED: / AGE / SEX: 69 / F ADM STATUS: REG ER SERVICE 1542 ORDERING PHYSICIAN: PAM HOANG MD PROCEDURE(s): CXRP - CHEST PORTABLE REASON: [facility] ORDER NUMBER(s): [id number], ACCESSION NUMBER(s): [id number] CHEST RADIOGRAPH Indication: ams Technique: Single frontal view of the chest was obtained Comparison: None FINDINGS: Lines and Tubes: Right IJ approach central venous catheter terminating over the superior cavoatrial junction. Lungs: No focal consolidation. Diffuse interstitial prominence. Pleura: No effusion. No pneumothorax. Cardiomediastinal contours: Unremarkable Bones: No acute osseous abnormality. IMPRESSION: Diffuse interstitial prominence which may be from pulmonary edema /atypical pneumonia. ATED BY: FRANNIE DALTON DO DICTATED DATE/TIME: 01/01/251842 SIGNED BY: FRANNIE DALTON DO SIGNED DATE/TIME: 01/01/251842 CC: EKG Name: ACACIA SMILEY Acct: [id number] [place] [address] ELECTROCARDIOGRAM REPORT PATIENT: ACACIA SMILEY ACCT: [id number] : 1955 LOC: ICU WEST ROOM / BED: [address] [place] [address] AGE / SEX: 69 / F ADM STATUS: ADM IN SERVICE 1444 UNIT: [id number] ORDERING PHYSICIAN: PAM HOANG MD PROCEDURE(s): EKG - ELECTROCARDIGRAM ORDER NUMBER(s): [id number], ACCESSION NUMBER(s): [id number] [facility] Test Date: 2025-01-01 Test Time: 18:35:57 Pat Name: ACACIA SMILEY Department: er Room: [address] [place] [address] 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 DICTATED BY: DICTATED DATE/TIME:01/01/251834 ELECTRONICALLY SIGNED BY: ELECTRONICALLY CO-SIGNED BY: [place] [id number] Ph: [phone] DIAGNOSTIC IMAGING Diagnostic Imaging Report : [id number] Signed PATIENT: ACACIA SMILEY ACCT: [id number] UNIT: [id number] : 1955 LOC: [facility] ROOM / BED: [address] [place] [address] AGE / SEX: 69 / F ADM STATUS: ADM IN SERVICE 0050 ORDERING PHYSICIAN: JAZLYN DE LA O PROCEDURE(s): ECIDC - ECHO 2D MODE CARDIAC DOP REASON: ef ORDER NUMBER(s): [id number], ACCESSION NUMBER(s): [id number] APPROVED REPORT EXAM: Two-dimensional and M-mode echocardiogram with Doppler and color Doppler. Blood Pressure: 103/74 mmHg INDICATION EF RISK FACTORS Height: 60, Weight: 99 DIMENSIONS LVDd 5.2 (3.8-5.7cm) LA (2D) 3.3 (1.9-4.0cm) Aortic Root 3.4 (2.0- 3.7cm) LVDs 4.8 (2.5-4.0cm) LA (MM) (1.9-4.0cm) Aortic Cusp Exc 1.6 (1.5- 2.0cm) EF (%) 20.0 (55-70%) Rt. Atrium 3.3 (1.9-4.0cm) Asc. Aorta 3.3 cm IVSd 1.2 (0.7-1.1cm) RV (D) (1.8-2.4cm) PWd 1.2 (0.7-1.1cm) Mitral Valve Mitral Mitral Stenosis E wave 0.81m/s MV Mean GR. mmHg A wave m/s MV Peak GR. 20mmHg E/A ratio 0.0 2D MVA cm2 Aortic Valve Aortic Valve Aortic Stenosis V1 0.66m/s AO Mean GR. 2mmHg V2 0.97m/s AO Peak GR. 4mmHg LVOT Diameter 2.0 (1.8-2.4cm) Doppler JORGE 2.14cm2 AI P 1/2 Time 498.04ms Pulmonic Valve V2 0.67m/s Other Information Technically limited study due to patient laying flat on her back. Conclusion lvef 10% by visual estimate marked LV enlargement end stage systolic HF RV dysfunction mild mild mitral regurg ( could be underestimated) trace to mild aortic regurg significant L sided pleural effusion appears large correlate with additional dedicated imaging small R sided pericardial effusion, no HD compromsie SIGNED BY: ORQUIDEA GIBSON MD SIGNED DATE/TIME: 01/02/25 1230 CC: Condition at Discharge: Unstable Final Diagnosis/Problems List Multiorgan failure secondary due to septic shock Congestive heart failure, systolic acute on chronic Urinary tract infection Community-acquired pneumonia/aspiration pneumonia Discharge Disposition: at Hospital Discharge Statement: "Patient was advised to return to the ER or call 911 if any headaches, dizziness, shortness of breath, chest pain, abdominal pain, bleeding, fevers, or worsening of medical condition. Patient was counseled about treatment plan, medications, possible side effects, patientverbalized understanding. All questions were answered to the best of my ability. This discharge took greater then 30 minutes in planning, reviewing documentation, counseling the patient, and discussing with other team members." ASSESSMENT ASSESSMENT Assessment ALEXANDRIA HERNANDEZ RESIDENT Jan 04, 2025 14:11
--- NOTE | 2025-01-04 14:57 | ECG ---
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
--- NOTE | 2025-01-04 22:24 | DVHPN2 ---
Progress Note - Dictate Date Seen: Jan 04, 2025 Has the PT tested + for MRSA If YES, has PT been informed?: No Medical Necessity Reason Pt with a Central, PICC or Fol: Yes The following are medically ne: PICC Line, Cuellar Catheter Reason for cuellar catheter: Strict I&O Subjective Patient was seen and evaluated in follow up in the ICU. Patient is complaining of productive cough with SOB. Patient is on 30 L via Oxymizer. WBC 17.2, BUN 30, ULTRASOUND APPLICATIONS SPECIALIST 1.72, AST 2897, ALT 1161. vital signs Vital Sign Date Time Temp Pulse Resp B/P (MAP) Pulse Ox O2 Delivery O2 Flow Rate FiO2 01/04/25 09:52 76 24 30.0 100 01/04/25 09:27 96/48 01/04/25 05:15 58 01/04/25 04:05 96.3 96.3 01/03/25 20:00 Oxymizer Total Intake and Output 01/03/25 01/03/25 01/04/25 15:00 23:00 07:00 Intake Total 997.50 ml 741.880 ml 779.700 ml Output Total 20 ml 75 ml Balance 997.50 ml 721.880 ml 704.700 ml medications Current Medications Medications Dose Ordered Sig/Maxi Route Start Time Stop Time Status Last Admin Dose Admin Sodium Chloride 10 ml QSHIFT@10,22 IV 01/01/25 22:00 01/04/25 09:01 10 ML Albuterol 2.5 mg Q6HPRN PRN NEB 01/02/25 01:00 01/03/25 02:46 2.5 MG Lidocaine 1 patch DAILY TOP 01/04/25 10:00 01/03/25 15:31 1 PATCH Morphine Sulfate 1 mg Q4HP PRN IV 01/03/25 15:00 01/03/25 20:26 1 MG Morphine Sulfate 1 mg Q1HP PRN IV 01/04/25 09:30 01/04/25 09:27 1 MG Lorazepam 1 mg Q1HP PRN IV 01/04/25 09:30 01/04/25 10:04 1 MG Sodium Biphosphate/ Sodium Phosphate 135 ml DAILYP PRN MN 01/04/25 09:30 Ondansetron HCl 4 mg Q4HP PRN IV 01/04/25 09:30 objective GENERAL: Awake, alert, oriented. LUNGS: Clear. CARDIOVASCULAR: Heart sounds are good. ABDOMEN: Soft. SKIN: Left forearm skin tear. laboratory and microbiology Laboratory Tests 01/04/25 04:59 Test 01/04/25 04:59 Range/Units Serum Glucose 72 L 74-106 mg/dL Problem List NSTEMI. Hypokalemia. Acute kidney injury. Transaminitis. Severe protein malnutrition. Diabetes mellitus. Pancreatic cancer status post chemotherapy. Urinary tract infection. Thrombocytopenia. Assessment/Plan Continued all current supportive medical care. Aspirin, Lipitor. IV antibiotics as ordered. Morphine for pain management. Vasopressors for hemodynamic support. Additional plan as per the hospital course. Critical care time of 45 minutes provided to include time spent evaluation of patient at bedside, when appropriate patient/family education for diagnosis, treatment plan, review of pertinent medical information and discussion of care with specialty providers and PCP. Dietary Evaluation Review Comments: 1. Recommend oral nutrition supplements of Ensure Enlive BID if pt becomes amenable (discussed with patient, patient refused at this time) 2. Continue daily weights, strict I&O's to monitor fluid status 3. Encourage PO intakes >75% of meals to enhance overall nutrition Expected Outcomes/Goals: Optimize nutrition Muscle Mass (Severe): Mod to Severe Depletion Fluid Accumulation (Severe): Moderate Fluid Retention Protein Calorie Malnutrition: Severe Is there a minimum of two crit: Yes Plan discussed with: Patient MARY ALICE NAVARRO MD Jan 04, 2025 11:57
--- NOTE | 2025-01-04 23:49 | DVHPNRES ---
Progress Note Date Seen: Jan 04, 2025 Resident Creating Document: MANOJ HERNANDEZ RESIDENT Has the PT tested + for MRSA If YES, has PT been informed?: No Medical Necessity Reason Pt with a Central, PICC or Fol: Yes The following are medically ne: PICC Line, Cuellar Catheter Reason for cuellar catheter: Strict I&O Subjective Review of Systems Overnight patient maxed out on 5 vasopressors, and uric with total 24 hours urine output of 50 cc only, massively fluid overloaded and worsening hypoxia. Objective vital signs Vital Sign Date Time Temp Pulse Resp B/P (MAP) Pulse Ox O2 Delivery O2 Flow Rate FiO2 01/04/25 11:45 91 0 01/04/25 11:30 47 01/04/25 10:00 Hi-Flow Heated NC+ 30 30 30 01/04/25 07:16 97.9 97.9 Total Intake and Output 01/03/25 01/03/25 01/04/25 15:00 23:00 07:00 Intake Total 997.50 ml 741.880 ml 779.700 ml Output Total 20 ml 75 ml Balance 997.50 ml 721.880 ml 704.700 ml Examination GENERAL:Normal (moderate distress), HEENT:Normal, NECK:Normal, LUNGS:Abnormal (Bilateral crackles, productive cough, on 11 L of high-flow nasal cannula oxygen), CVS:Abnormal (Elevated JVP), ABDOMEN:Normal (Nontender), MSK:Abnormal (Bilateral pedal edema, pitting 3++), SKIN:Normal, NEURO:Normal, :Normal (On Cuellar's catheter) laboratory and microbiology Laboratory Tests 01/04/25 04:59 Test 01/04/25 04:59 Range/Units Serum Glucose 72 L 74-106 mg/dL Microbiology Date/Time Source Procedure Growth Status 01/03/25 10:53 Blood Blood Culture - Preliminary NO GROWTH AFTER 24 HOURS OF INCUBATION. Resulted 01/02/25 14:29 Nose MRSA Screen - Final Complete Labs and/or images reviewed: Labs reviewed by me, Image(s) reviewed by me Problem List/Assessment/Plan Problem List/Assessment/Plan ICU Course: A 69-year-old female with a history of pancreatic cancer and diabetes mellitus presented with generalized weakness. She is undergoing weekly chemotherapy at [facility]. Her family noted she has become progressively weaker and more lethargic. During transport, her blood pressure was in the 70s. Currently, she is alert and oriented, experiencing mild dizziness but no headache, blurred vision, chest pain, shortness of breath, abdominal pain, nausea, vomiting, fever, or chills. No other acute complaints were reported. Patient was found to have heart failure with reduced ejection fraction around 10% EF, CHF exacerbation, MICHAEL, portal vein thrombosis, volume overloaded state, bilateral pneumonia, UTI and acute hypoxic respiratory failure. Hospitalization day: 4 A. Neurology: # insomnia: patient is on trazodone 50 mg at night, we will hold since patient is somnolent. Avoid medications with beers criteria. # mild territorial ischemia likely age-related: Noted in CT head noncontrast B. Cardiology: # hypotension secondary to Septic shock: although there could be a component of HF low ejection fraction, patient on 2 pressors keep the map over 65. # HFrEF: TTE/echo 10% ejection fraction, dilated cardiomyopathy. Likely due to cardiotoxic chemotherapy, IV Lasix diuresis as needed. Irinotecan and oxaliplatin are generally less associated with cardiotoxicity, where Fluorouracil (5-FU), Gemcitabine, Paclitaxel are highly cardio toxic. Further discussion needed with the primary oncologist. # acute on chronic heart failure: Moderate fluid overloaded state, bilateral pedal edema 3+, congestion as well as hypervolemic state/ Bilateral pedal edema: Patient was started on furosemide 20 mg tab recently but no further workup was done for heart failure. Trial of Lasix IV 40 mg, consider starting the patient on Lasix drip. C. Respiratory: # Acute hypoxic respiratory failure: Likely due to CHF exacerbation, Questionable pneumonia. check CXR tomorrow, unchanged pulmonary edema, sputum culture sent follow results, check for influenza, COVID negative. Worsening hypoxia with 11 L of high-flow nasal cannula. # bilateral pleural effusion: Likely due to fluid overload state/CHF exacerbation # possible atypical pneumonia: Workup in pending sputum culture. D. Gastrointestinal: # Known pancreatic cancer : since 1999, status post Whipple's surgery 2022, patient was on remission but had 2023 patient was found to have resurfacing of pancreatic cancer since then patient is every Thursday going to [facility] for chemotherapy. # History of Whipple's surgery in 2022 # Nausea secondary to chemotherapy: As needed ondansetron, Compazine # Transaminitis: Mild elevation of the bilirubin 1.1, AST ALT and alkaline phosphatase elevated: Likely due to conditions/septic shock/ atorvastatin, hold atorvastatin CMP follow up trending. # trace abdominal ascites: Likely due to fluid overload state, abdominal examination unremarkable. E. Genitourinary: # incontinence: on Cuellar's catheter # UTI: urinalysis positive no previous culture available, on broad-spectrum antibiotics meropenem should cover possible gram negatives, urine culture pending. F. Infectious Disease: # severe sepsis secondary due to UTI : On broad antibiotic coverage of meropenem and vancomycin day 3 # lactic acidosis 3.2> 3.9>>8.2: 250 cc of Ringer lactate given, limited scope of fluid resuscitation due to heart failure. # possible sepsis secondary due to community-acquired pneumonia Gram-positive Gram-negative: sputum culture pending , continue vancomycin till then Along with Gram-negative coverage. # UTI: Could be Gram-negative , no previous urinalysis found, urine culture and blood culture sent. Follow results. # bacteremia Gram-negative rods: Aeromonas caviae and Klebsiella oxytoca Covering with meropenem given relative immunocompromised state. patient is on PICC line which was during the infectious , if infection did not improve we will consider removal of PICC line. Follow up final culture, continue antibiotics with meropenem and vancomycin repeat blood culture sent # multiorgan failure: secondary to septic shock multiple organ failure, elevated lactate, heart failure, respiratory failure, renal failure, worsening leukocytosis G. Hematology & Oncology: # Moderate thrombocytopenia: with platelet of 62, improved to 103. Avoid antiplatelets keep the patient on SCDs. # Baseline hemoglobin: unknown, presented around 7.3, 9.9. # pancreatic cancer on chemotherapy: Previously on fluorouracil, irinotecan, oxaliplatin x 9 cycles in 2020. Currently patient is getting gemcitabine and paclitaxel, but at reduced dose. # portal vein thrombosis: Limited due to thrombocytopenia and fluid overload state to start for IV heparin drip. Newly known portal vein thrombosis, typically continue for a minimum of six months. Check renal function multiphase CT / Doppler to note extent. # right lobe of liver mass 2.7 cm: Could be related to the carcinoma. H. Nephrology: # MICHAEL due to VM in: 1.29> 1.38, likely due to sepsis, avoid nephrotoxic close follow up with I&O and daily BMP , unremarkable findings in renal ultrasound. last 24 hour urine output 300 mL unsatisfactory. # high anion gap metabolic acidosis with bicarbonate <10. I. Endocrine: # diabetes mellitus, insulin dependent: on Basaglar, close follow up with insulin supplement and cardiac/ CC diet. HbA1c 9 0.6, uncontrolled, target blood glucose 140-180 postprandial in-hospital acute care. J. MSK: # bipedal pitting edema: likely due to CHF K. Prophylaxis: PPI: pantoprazole 40 mg daily DVT: SCDs only , with thrombocytopenia limited use of heparin/low molecular weight heparin. L. Lines & Drains (with insertion date): -patient has known [employer] for chemotherapy, -PICC line: 01/01/2025 -Cuellar's catheter: 01/02/25 M. Drips: Levophed and vasopressin N. Disposition: Remains in ICU level of care, DNR/DNI, chemical code further discussion revealed family wants to withdraw aggressive care. Code status changed to comfort care. The plan was discussed with the ICU attending Dr. Tovar. The patient care consists of total 86 minutes of critical care time excluding the procedures. Dictated by Manoj Hernandez MD with 3M MModal Fluency. Plan discussed with: Patient, Daughter, Other (Primary team.) My Orders My Orders Orders - MANOJ HERNANDEZ Procedure Category Date Status Time Abg W/ Co-Ox RT 01/04/25 Logged 07:00 Abg W/ Co-Ox RT 01/04/25 Logged 03:58 Code Status CODE 01/04/25 Transmitted 09:24 Dietary Evaluation Review Comments: 1. Recommend oral nutrition supplements of Ensure Enlive BID if pt becomes amenable (discussed with patient, patient refused at this time) 2. Continue daily weights, strict I&O's to monitor fluid status 3. Encourage PO intakes >75% of meals to enhance overall nutrition Expected Outcomes/Goals: Optimize nutrition Muscle Mass (Severe): Mod to Severe Depletion Fluid Accumulation (Severe): Moderate Fluid Retention Protein Calorie Malnutrition: Severe Is there a minimum of two crit: Yes Date of Service: Jan 04, 2025 Billing Provider: JAZLYN TOVAR MD Common Visit Codes: 12346-[id number] CARE 30-74 MIN, [id number] CARE-EACH +30MIN MANOJ HERNANDEZ Jan 04, 2025 23:49 JAZLYN TOVAR MD Jan 08, 2025 17:50
== END 2025-01-04 16:14 | DRG 871 ==
LOC: ER 15:34 → EDBD 15:34 → EDUNIT# 15:34 → TELE 01-02 00:50 → ICU WEST 01-03 04:24
PROVIDERS: ADMIT Internal Medicine; ATTEND Emergency Medicine
PROC: 02HV33Z Insertion of Infusion Device into Superior Vena Cava, Percutaneous Approach (ICD-10-PCS; principal; 2025-01-01)
PROC: B548ZZA Ultrasonography of Superior Vena Cava, Guidance (ICD-10-PCS; 2025-01-01)
PROC: 5A0935A Assistance with Respiratory Ventilation, Less than 24 Consecutive Hours, High Flow/Velocity Cannula (ICD-10-PCS; 2025-01-04)
DX: A41.50 Gram-negative sepsis, unspecified (principal); E43 Unspecified severe protein-calorie malnutrition; R65.21 Severe sepsis with septic shock; I21.4 Non-ST elevation (NSTEMI) myocardial infarction; G93.41 Metabolic encephalopathy; J96.01 Acute respiratory failure with hypoxia; J15.69 Pneumonia due to other Gram-negative bacteria; N17.0 Acute kidney failure with tubular necrosis; I50.23 Acute on chronic systolic (congestive) heart failure; J69.0 Pneumonitis due to inhalation of food and vomit; J15.9 Unspecified bacterial pneumonia; I81 Portal vein thrombosis; C25.9 Malignant neoplasm of pancreas, unspecified; N39.0 Urinary tract infection, site not specified; J90 Pleural effusion, not elsewhere classified; E87.20 Acidosis, unspecified; Z20.822 Contact with and (suspected) exposure to COVID-19; I11.0 Hypertensive heart disease with heart failure; Z66 Do not resuscitate; E87.6 Hypokalemia; D69.6 Thrombocytopenia, unspecified; R74.01 Elevation of levels of liver transaminase levels; E83.51 Hypocalcemia; E11.9 Type 2 diabetes mellitus without complications; Z85.07 Personal history of malignant neoplasm of pancreas; Z92.21 Personal history of antineoplastic chemotherapy; G47.00 Insomnia, unspecified; D64.9 Anemia, unspecified; Z68.29 Body mass index [BMI] 29.0-29.9, adult
CPT/HCPCS: 36415; 36569; 36600; 70450; 71045; 76700; 76937; 80053; 80202; 81001; 82140; 82805; 82962; 83036; 83605; 83690; 83880; 84484; 85007; 85025; 85027; 85379; 85384; 85610; 85730; 87040; 87076; 87077; 87081; 87186; 87426; 93005; 93306; 94640; 99291; G0378; J0171; J1265; J1815; J2185; J2405; J2470; J3480; J7060